=== PATIENT | male | born 1930 | race Caucasian/White ===

== ENCOUNTER 2016-11-10 19:38 | Emergency (ER) | payer MEDICARE, OTHER ==
[2016-11-10] MEDS ORDERED: SODIUM CHLORIDE 0.9% 1,000 ML IV STA ×2 (19:47→20:46)
[2016-11-10 19:49] LABS: Glucose,Whole Blood 89 mg/dL (75-99)
[2016-11-10 19:50] VITALS: RESP 18; TEMP 97.8
--- NOTE | 2016-11-10 19:50 | ED ---
General Adult HPI - General Stated complaint: Altered Mental Time Seen by Provider: 11/10/16 19:42 Source: patient, family, EMS, RN notes reviewed, old records reviewed Mode of arrival: ambulatory Limitations: altered mental status - History of Present Illness Initial comments: This is an 86-year-old male here for evaluation of altered mental status. Patient presents today presents today with altered mental status patient himself does not appear to be profoundly altered at this time. Patient and does admit the patient drinking today, has not been home for 2 days is reasonable to the hospital, patient's been at home taking care of himself. No known trauma no fevers, no new medications or know stopping of old medications. - Related Data Home Medications Medication Instructions Recorded Confirmed Memantine [Namenda] 5 mg PO BID 11/10/16 11/10/16 Allergies Allergy/AdvReac Type Severity Reaction Status Date / Time No Known Allergies Allergy Verified 11/10/16 20:03 Review of Systems ROS Statement: Those systems with pertinent positive or pertinent negative responses have been documented in the HPI. ROS Other: All systems not noted in ROS Statement are negative. Past Medical History Past Medical History: Dementia Additional Past Medical History / Comment(s): Prostate and skin CA History of Any Multi-Drug Resistant Organisms: None Reported Additional Past Surgical History / Comment(s): Colectomy Past Psychological History: No Psychological Hx Reported Smoking Status: Never smoker Past Alcohol Use History: Heavy Past Drug Use History: None Reported General Exam Limitations: no limitations General appearance: alert, in no apparent distress, appears intoxicated Head exam: Present: atraumatic, normocephalic, normal inspection Eye exam: Present: normal appearance, PERRL, EOMI. Absent: scleral icterus, conjunctival injection, periorbital swelling ENT exam: Present: normal exam, mucous membranes moist Neck exam: Present: normal inspection. Absent: tenderness, meningismus, lymphadenopathy Respiratory exam: Present: normal lung sounds bilaterally. Absent: respiratory distress, wheezes, rales, rhonchi, stridor Cardiovascular Exam: Present: regular rate, normal rhythm, normal heart sounds. Absent: systolic murmur, diastolic murmur, rubs, gallop, clicks GI/Abdominal exam: Present: soft, normal bowel sounds. Absent: distended, tenderness, guarding, rebound, rigid Extremities exam: Present: normal inspection, full ROM, normal capillary refill. Absent: tenderness, pedal edema, joint swelling, calf tenderness Back exam: Present: normal inspection Neurological exam: Present: alert, oriented X3, CN II-XII intact Psychiatric exam: Present: normal affect, normal mood Skin exam: Present: warm, dry, intact, normal color. Absent: rash Course Vital Signs 11/10/16 11/10/16 19:45 20:32 Temperature 97.8 F Pulse Rate 70 70 Respiratory 18 18 Rate Blood Pressure 162/78 148/72 O2 Sat by Pulse 99 99 Oximetry - Reevaluation(s) Reevaluation #1: 11/10/16 21:07 In speaking with patient's regarding alcohol level, she was surprised, patient does appear to be able to answer questions without difficulty at this time EKG Findings - EKG Comments: EKG Findings:: EKG shows normal sinus rhythm rate of 68, IN 170, QRS 90, QTC 425 Medical Decision Making - Medical Decision Making 80 formality ER for evaluation of altered mental status, patient's states patient is not acting properly not seeing or responding to appropriate, calling her R name not noticing who she is. No-cost of infection found, CT brain is negative for acute disease, patient be admitted for neurological evaluation, patient does drink the alcohol level is negative - Lab Data Result diagrams: 11/10/16 19:45 11/10/16 19:45 Lab Results 11/10/16 11/10/16 11/10/16 Range/Units 19:45 19:45 19:45 WBC 6.9 (3.8-10.6) k/uL RBC 3.75 L (4.30-5.90) m/uL Hgb 12.8 L (13.0-17.5) gm/dL Hct 36.9 L (39.0-53.0) % MCV 98.3 (80.0-100.0) fL MCH 34.2 (25.0-35.0) pg MCHC 34.8 (31.0-37.0) g/dL RDW 13.0 (11.5-15.5) % Plt Count 166 (150-450) k/uL Neutrophils % 59 % Lymphocytes % 33 % Monocytes % 5 % Eosinophils % 1 % Basophils % 1 % Neutrophils # 4.0 (1.3-7.7) k/uL Lymphocytes # 2.2 (1.0-4.8) k/uL Monocytes # 0.4 (0-1.0) k/uL Eosinophils # 0.1 (0-0.7) k/uL Basophils # 0.0 (0-0.2) k/uL PT (9.0-12.0) sec INR (<1.1) APTT (22.0-30.0) sec Sodium (137-145) mmol/L Potassium (3.5-5.1) mmol/L Chloride (98-107) mmol/L Carbon Dioxide (22-30) mmol/L Anion Gap mmol/L BUN (9-20) mg/dL Creatinine (0.66-1.25) mg/dL Est GFR (MDRD) Af Amer (>60 ml/min/1.73 sqM) Est GFR (MDRD) Non-Af (>60 ml/min/1.73 sqM) Glucose (74-99) mg/dL POC Glucose (mg/dL) (75-99) mg/dL POC Glu Ssrs Report Developer ID Calcium (8.4-10.2) mg/dL Phosphorus (2.5-4.5) mg/dL Magnesium (1.6-2.3) mg/dL Total Bilirubin (0.2-1.3) mg/dL AST (17-59) U/L ALT (21-72) U/L Alkaline Phosphatase (38-126) U/L Ammonia <9 (<30) umol/L Total Creatine Kinase 101 (55-170) U/L CK-MB (CK-2) 1.1 (0.0-2.4) ng/mL CK-MB (CK-2) Rel Index 1.1 Troponin I <0.012 (0.000-0.034) ng/mL Total Protein (6.3-8.2) g/dL Albumin (3.5-5.0) g/dL Urine Color Urine Appearance (Clear) Urine pH (5.0-8.0) Ur Specific Anderson (1.001-1.035) Urine Protein (Negative) Urine Glucose (UA) (Negative) Urine Ketones (Negative) Urine Blood (Negative) Urine Nitrite (Negative) Urine Bilirubin (Negative) Urine Urobilinogen (<2.0) mg/dL Ur Leukocyte Esterase (Negative) Urine RBC (0-5) /hpf Ur Squamous Epith Cells (0-4) /hpf Urine Bacteria (None) /hpf Hyaline Casts (0-2) /lpf Urine Mucus (None) /hpf Salicylates mg/dL Acetaminophen ug/mL Serum Alcohol mg/dL 11/10/16 11/10/16 11/10/16 Range/Units 19:45 19:45 19:48 WBC (3.8-10.6) k/uL RBC (4.30-5.90) m/uL Hgb (13.0-17.5) gm/dL Hct (39.0-53.0) % MCV (80.0-100.0) fL MCH (25.0-35.0) pg MCHC (31.0-37.0) g/dL RDW (11.5-15.5) % Plt Count (150-450) k/uL Neutrophils % % Lymphocytes % % Monocytes % % Eosinophils % % Basophils % % Neutrophils # (1.3-7.7) k/uL Lymphocytes # (1.0-4.8) k/uL Monocytes # (0-1.0) k/uL Eosinophils # (0-0.7) k/uL Basophils # (0-0.2) k/uL PT 10.5 (9.0-12.0) sec INR 1.0 (<1.1) APTT 22.2 (22.0-30.0) sec Sodium 141 (137-145) mmol/L Potassium 4.0 (3.5-5.1) mmol/L Chloride 105 (98-107) mmol/L Carbon Dioxide 24 (22-30) mmol/L Anion Gap 12 mmol/L BUN 26 H (9-20) mg/dL Creatinine 1.52 H (0.66-1.25) mg/dL Est GFR (MDRD) Af Amer 53 (>60 ml/min/1.73 sqM) Est GFR (MDRD) Non-Af 44 (>60 ml/min/1.73 sqM) Glucose 95 (74-99) mg/dL POC Glucose (mg/dL) 89 (75-99) mg/dL POC Glu Ssrs Report Developer ID [email or web address] Calcium 9.1 (8.4-10.2) mg/dL Phosphorus 3.3 (2.5-4.5) mg/dL Magnesium 2.1 (1.6-2.3) mg/dL Total Bilirubin 0.7 (0.2-1.3) mg/dL AST 19 (17-59) U/L ALT 22 (21-72) U/L Alkaline Phosphatase 60 (38-126) U/L Ammonia (<30) umol/L Total Creatine Kinase (55-170) U/L CK-MB (CK-2) (0.0-2.4) ng/mL CK-MB (CK-2) Rel Index Troponin I (0.000-0.034) ng/mL Total Protein 7.0 (6.3-8.2) g/dL Albumin 4.0 (3.5-5.0) g/dL Urine Color Urine Appearance (Clear) Urine pH (5.0-8.0) Ur Specific Anderson (1.001-1.035) Urine Protein (Negative) Urine Glucose (UA) (Negative) Urine Ketones (Negative) Urine Blood (Negative) Urine Nitrite (Negative) Urine Bilirubin (Negative) Urine Urobilinogen (<2.0) mg/dL Ur Leukocyte Esterase (Negative) Urine RBC (0-5) /hpf Ur Squamous Epith Cells (0-4) /hpf Urine Bacteria (None) /hpf Hyaline Casts (0-2) /lpf Urine Mucus (None) /hpf Salicylates <1.0 mg/dL Acetaminophen <10.0 ug/mL Serum Alcohol <10 mg/dL 11/10/16 Range/Units 20:00 WBC (3.8-10.6) k/uL RBC (4.30-5.90) m/uL Hgb (13.0-17.5) gm/dL Hct (39.0-53.0) % MCV (80.0-100.0) fL MCH (25.0-35.0) pg MCHC (31.0-37.0) g/dL RDW (11.5-15.5) % Plt Count (150-450) k/uL Neutrophils % % Lymphocytes % % Monocytes % % Eosinophils % % Basophils % % Neutrophils # (1.3-7.7) k/uL Lymphocytes # (1.0-4.8) k/uL Monocytes # (0-1.0) k/uL Eosinophils # (0-0.7) k/uL Basophils # (0-0.2) k/uL PT (9.0-12.0) sec INR (<1.1) APTT (22.0-30.0) sec Sodium (137-145) mmol/L Potassium (3.5-5.1) mmol/L Chloride (98-107) mmol/L Carbon Dioxide (22-30) mmol/L Anion Gap mmol/L BUN (9-20) mg/dL Creatinine (0.66-1.25) mg/dL Est GFR (MDRD) Af Amer (>60 ml/min/1.73 sqM) Est GFR (MDRD) Non-Af (>60 ml/min/1.73 sqM) Glucose (74-99) mg/dL POC Glucose (mg/dL) (75-99) mg/dL POC Glu Ssrs Report Developer ID Calcium (8.4-10.2) mg/dL Phosphorus (2.5-4.5) mg/dL Magnesium (1.6-2.3) mg/dL Total Bilirubin (0.2-1.3) mg/dL AST (17-59) U/L ALT (21-72) U/L Alkaline Phosphatase (38-126) U/L Ammonia (<30) umol/L Total Creatine Kinase (55-170) U/L CK-MB (CK-2) (0.0-2.4) ng/mL CK-MB (CK-2) Rel Index Troponin I (0.000-0.034) ng/mL Total Protein (6.3-8.2) g/dL Albumin (3.5-5.0) g/dL Urine Color Yellow Urine Appearance Clear (Clear) Urine pH 5.5 (5.0-8.0) Ur Specific Anderson 1.019 (1.001-1.035) Urine Protein 1+ H (Negative) Urine Glucose (UA) Negative (Negative) Urine Ketones Negative (Negative) Urine Blood Trace H (Negative) Urine Nitrite Negative (Negative) Urine Bilirubin Negative (Negative) Urine Urobilinogen <2.0 (<2.0) mg/dL Ur Leukocyte Esterase Negative (Negative) Urine RBC 1 (0-5) /hpf Ur Squamous Epith Cells 1 (0-4) /hpf Urine Bacteria Rare H (None) /hpf Hyaline Casts 3 H (0-2) /lpf Urine Mucus Rare H (None) /hpf Salicylates mg/dL Acetaminophen ug/mL Serum Alcohol mg/dL - Radiology Data Radiology results: report reviewed (CT brain negative for acute disease), image reviewed Disposition Clinical Impression: Altered mental status Disposition: ADMITTED IP TO THIS HOSP Condition: Fair Instructions: Altered Mental Status (ED) Referrals: None,Stated [Primary Care Provider] - 1-2 days
[2016-11-10 19:58] LABS: Basophils % (A) 1 %; CH 34.9; CHCM 35.7; Eosinophils # (A) 0.1 k/uL (0-0.7); Eosinophils % (A) 1 %; HCT 36.9 % (39.0-53.0); HDW 2.81; HGB 12.8 gm/dL (13.0-17.5); Luc # (Auto) 0.11; Luc % (Auto) 2; Lymphocytes # (A) 2.2 k/uL (1.0-4.8); Lymphocytes % (A) 33 %; MCH 34.2 pg (25.0-35.0); MCHC 34.8 g/dL (31.0-37.0); MCV 98.3 fL (80.0-100.0); Mean Platelet Volume 7.1; Monocytes # (A) 0.4 k/uL (0-1.0); Monocytes % (A) 5 %; Neutrophils % (A) 59 %; RBC 3.75 m/uL (4.30-5.90); WBC 6.9 k/uL (3.8-10.6); WBC (Perox) 6.91
[2016-11-10 20:06] LABS: Partial Thromboplastin Time 22.2 sec (22.0-30.0); Prothrombin Time 10.5 sec (9.0-12.0)
[2016-11-10 20:10] LABS: Appearance,Urine Clear (Clear); Bacteria,Urine Rare /hpf; Bilirubin,Urine Negative (Negative); Glucose,Urine (UA) Negative (Negative); Ketones,Urine Negative (Negative); Leukocyte Esterase,Urine Negative (Negative); Mucus,Urine Rare /hpf; Nitrite,Urine Negative (Negative); PH, Urine 5.5 (5.0-8.0); Particle Count 4902; Protein,Urine 1+ (Negative); RBC,Urine 1 /hpf (0-5); Specific Gravity,Urine 1.019 (1.001-1.035); Squamous Epithelial Cell,Urine 1 /hpf (0-4); UA Billing (MACRO vs. MICRO) MICRO; Urobilinogen,Urine <2.0 mg/dL (<2.0)
[2016-11-10 20:13] LABS: ALT 22 U/L (21-72); AST 19 U/L (17-59); Acetaminophen <10.0 ug/mL; Alcohol <10 mg/dL; Alkaline Phosphatase 60 U/L (38-126); Anion Gap 12 mmol/L; Blood Urea Nitrogen 26 mg/dL (9-20); Calcium 9.1 mg/dL (8.4-10.2); Carbon Dioxide 24 mmol/L (22-30); Chloride 105 mmol/L (98-107); Glucose 95 mg/dL (74-99); Magnesium 2.1 mg/dL (1.6-2.3); Non-African American GFR(MDRD) 44 (>60 ml/min/1.73 sqM); Phosphorous 3.3 mg/dL (2.5-4.5); Salicylate <1.0 mg/dL; Sodium 141 mmol/L (137-145); Total Bilirubin 0.7 mg/dL (0.2-1.3)
[2016-11-10 20:43] LABS: Creatine Kinase 101 U/L (55-170)
[2016-11-10 20:56] LABS: Creatine Kinase MB 1.1 ng/mL (0.0-2.4); Troponin I <0.012 ng/mL (0.000-0.034)
[2016-11-10] MEDS ORDERED: ASPIRIN 325 MG TAB PO STA (21:06)
--- NOTE | 2016-11-10 21:11 | CT ---
EXAMINATION TYPE: CT brain wo con DATE OF EXAM: 11/10/2016 8:56 PM COMPARISON: NONE HISTORY: History of dementia. increased confusion today CT DLP: 995.5 mGycm Automated exposure control for dose reduction was used. FINDINGS: There is diffuse cerebral cortical atrophy. There is no mass effect nor midline shift. There is no si gn of intracranial hemorrhage. The calvarium is intact. IMPRESSION: Cerebral atrophy with progression compared to old MR scan of 08/05/2005. No acute abnormality.
[2016-11-10] MEDS ORDERED: SODIUM CHLORIDE 0.9% 1,000 ML IV SCH (21:15)
[2016-11-10 21:34] VITALS: BP 158/78; PULSE 60
[2016-11-11] MEDS ORDERED: ASPIRIN 325 MG TAB PO SCH (21:07)
== END 2016-11-10 21:38 | disposition other institution (70) ==
LOC: EC 19:38 → UNDOADMIN 21:06 → 6SEL 21:06
DX: R41.82 Altered mental status, unspecified (principal); F03.90 Unspecified dementia, unspecified severity, without behavioral disturbance, psychotic disturbance, mood disturbance, and anxiety; Z85.46 Personal history of malignant neoplasm of prostate; Z85.828 Personal history of other malignant neoplasm of skin; Z79.899 Other long term (current) drug therapy
CPT/HCPCS: 36415; 70450; 80053; 80320; 81001; 82140; 82550; 82553; 83520; 83735; 84100; 84484; 85025; 85610; 85730; 87086; 93005; 96360; 99285

== ENCOUNTER 2017-08-12 19:53 | Emergency (ER) | payer MEDICARE, OTHER ==
[2017-08-12 20:34] LABS: Glucose,Whole Blood 97 mg/dL (75-99)
[2017-08-12 20:40] LABS: Basophils # (A) 0.1 k/uL (0-0.2); Basophils % (A) 1 %; Eosinophils # (A) 0.1 k/uL (0-0.7); Eosinophils % (A) 2 %; HCT 36.1 % (39.0-53.0); HGB 12.1 gm/dL (13.0-17.5); Lymphocytes # (A) 2.4 k/uL (1.0-4.8); Lymphocytes % (A) 34 %; MCHC 33.5 g/dL (31.0-37.0); MCV 101.5 fL (80.0-100.0); Macrocytosis Slight; Mean Platelet Volume 7.3; Monocytes # (A) 0.3 k/uL (0-1.0); Monocytes % (A) 5 %; Neutrophils # (A) 3.9 k/uL (1.3-7.7); Neutrophils % (A) 57 %; Platelet Count 251 k/uL (150-450); RBC 3.56 m/uL (4.30-5.90); RDW 12.9 % (11.5-15.5); WBC 6.9 k/uL (3.8-10.6)
[2017-08-12 20:49] LABS: Albumin 3.7 g/dL (3.5-5.0); Calcium 9.2 mg/dL (8.4-10.2); Potassium 4.6 mmol/L (3.5-5.1); Total Bilirubin 0.4 mg/dL (0.2-1.3); Total Protein 6.5 g/dL (6.3-8.2)
[2017-08-12 20:51] LABS: Partial Thromboplastin Time 22.3 sec (22.0-30.0)
[2017-08-12 20:58] LABS: Creatine Kinase 100 U/L (55-170)
--- NOTE | 2017-08-12 21:05 | XR ---
EXAMINATION TYPE: XR chest 2V DATE OF EXAM: 08/12/2017 COMPARISON: NONE HISTORY: Dementia. Confusion. TECHNIQUE: Frontal and lateral views of the chest are obtained. FINDINGS: There is no heart failure nor confluent pneumonic infiltrate. Thoracic aorta is atheromato us. Heart size is normal. There is no pleural effusion. Bony thorax is intact. IMPRESSION: No active cardiopulmonary disease. Normal heart.
--- NOTE | 2017-08-12 21:09 | CT ---
EXAMINATION TYPE: CT brain wo con DATE OF EXAM: 08/12/2017 COMPARISON: NONE HISTORY: Altered mental status, history of dementia. CT DLP: 1262.00 mGycm Automated exposure control for dose reduction was used. FINDINGS: There is cerebral cortical atrophy. There is no mass effect nor midline shift. There is no sign of in tracranial hemorrhage. The calvarium is intact. IMPRESSION: NEGATIVE CT SCAN OF THE BRAIN. ATROPHY APPROPRIATE FOR AGE.
[2017-08-12 21:11] LABS: Creatine Kinase MB 1.2 ng/mL (0.0-2.4); Troponin I <0.012 ng/mL (0.000-0.034)
[2017-08-12] MEDS ORDERED: SODIUM CHLORIDE 0.9% 1,000 ML IV ONE (21:12)
--- NOTE | 2017-08-12 21:37 | ED ---
Altered Mental Status HPI - General Chief Complaint: Altered Mental Status Stated Complaint: Dimentia Time Seen by Provider: 08/12/17 20:16 Source: patient, family, EMS, RN notes reviewed Mode of arrival: EMS Limitations: altered mental status (dementia) - History of Present Illness Initial Comments: 87-year-old male presents emergency department via EMS with for confusion, combative numbness. Patient has a history of dementia and is normally combative at times though easily redirected. White states that she could not calm down this evening and so called EMS. She states that he most likely just drank too much alcohol. She states that he is at his normal baseline now that he is home. Patient himself has no complaints denies chest pain, headache, dizziness, abdominal pain, nausea vomiting. States that he usually gets worse as the day goes on and towards nighttime and also states that he does not nap and afternoon symptoms worsen or she did state that he does not take a nap tonight. - Related Data Home Medications Medication Instructions Recorded Confirmed Memantine [Namenda] 10 mg PO DAILY 08/12/17 08/12/17 Allergies Allergy/AdvReac Type Severity Reaction Status Date / Time No Known Allergies Allergy Verified 08/12/17 20:19 Review of Systems ROS Statement: Those systems with pertinent positive or pertinent negative responses have been documented in the HPI. ROS Other: All systems not noted in ROS Statement are negative. Past Medical History Past Medical History: Dementia Additional Past Medical History / Comment(s): Prostate and skin CA History of Any Multi-Drug Resistant Organisms: None Reported Additional Past Surgical History / Comment(s): Colectomy Past Psychological History: No Psychological Hx Reported Smoking Status: Never smoker Past Alcohol Use History: Heavy Past Drug Use History: None Reported General Exam Limitations: altered mental status General appearance: alert, in no apparent distress Head exam: Present: atraumatic, normocephalic, normal inspection Eye exam: Present: normal appearance, PERRL, EOMI. Absent: scleral icterus, conjunctival injection, periorbital swelling ENT exam: Present: normal exam, normal oropharynx, mucous membranes moist, TM's normal bilaterally, normal external ear exam Neck exam: Present: normal inspection, full ROM. Absent: tenderness, meningismus, lymphadenopathy Respiratory exam: Present: normal lung sounds bilaterally. Absent: respiratory distress, wheezes, rales, rhonchi, stridor Cardiovascular Exam: Present: regular rate, normal rhythm, normal heart sounds. Absent: systolic murmur, diastolic murmur, rubs, gallop, clicks GI/Abdominal exam: Present: soft, normal bowel sounds. Absent: distended, tenderness, guarding, rebound, rigid Neurological exam: Present: alert, CN II-XII intact, reflexes normal. Absent: oriented X3, motor sensory deficit Skin exam: Present: warm, dry, intact, normal color. Absent: rash Course Vital Signs 08/12/17 08/12/17 20:10 21:42 Temperature 97.6 F Pulse Rate 66 65 Respiratory 18 18 Rate Blood Pressure 168/92 201/96 O2 Sat by Pulse 98 97 Oximetry Medical Decision Making - Medical Decision Making 87-year-old male present emergency department for confusion, dementia, and combative behavior. Patient has a history of dementia patient is as baseline per family at this time. Patient's laboratory shows mild elevation of his kidney function though he does have some chronic issues. Patient was hydrated patient is not combative has not had any episodes here. We did discuss that if family feels that he is still confused from his baseline or unable to be cared for at home he may be admitted family states that they do feel control taking him home at this time. - Lab Data Result diagrams: 08/12/17 20:27 08/12/17 20:27 Lab Results 08/12/17 08/12/17 08/12/17 Range/Units 20:27 20:27 20:27 WBC 6.9 (3.8-10.6) k/uL RBC 3.56 L (4.30-5.90) m/uL Hgb 12.1 L (13.0-17.5) gm/dL Hct 36.1 L (39.0-53.0) % MCV 101.5 H (80.0-100.0) fL MCH 34.0 (25.0-35.0) pg MCHC 33.5 (31.0-37.0) g/dL RDW 12.9 (11.5-15.5) % Plt Count 251 (150-450) k/uL Neutrophils % 57 % Lymphocytes % 34 % Monocytes % 5 % Eosinophils % 2 % Basophils % 1 % Neutrophils # 3.9 (1.3-7.7) k/uL Lymphocytes # 2.4 (1.0-4.8) k/uL Monocytes # 0.3 (0-1.0) k/uL Eosinophils # 0.1 (0-0.7) k/uL Basophils # 0.1 (0-0.2) k/uL Macrocytosis Slight PT (9.0-12.0) sec INR (<1.2) APTT (22.0-30.0) sec Sodium 140 (137-145) mmol/L Potassium 4.6 (3.5-5.1) mmol/L Chloride 106 (98-107) mmol/L Carbon Dioxide 25 (22-30) mmol/L Anion Gap 9 mmol/L BUN 30 H (9-20) mg/dL Creatinine 1.73 H (0.66-1.25) mg/dL Est GFR (MDRD) Af Amer 46 (>60 ml/min/1.73 sqM) Est GFR (MDRD) Non-Af 38 (>60 ml/min/1.73 sqM) Glucose 99 (74-99) mg/dL POC Glucose (mg/dL) (75-99) mg/dL POC Glu Manager Balance ID Calcium 9.2 (8.4-10.2) mg/dL Total Bilirubin 0.4 (0.2-1.3) mg/dL AST 23 (17-59) U/L ALT 36 (21-72) U/L Alkaline Phosphatase 70 (38-126) U/L Total Creatine Kinase 100 (55-170) U/L CK-MB (CK-2) 1.2 (0.0-2.4) ng/mL CK-MB (CK-2) Rel Index 1.2 Troponin I <0.012 (0.000-0.034) ng/mL Total Protein 6.5 (6.3-8.2) g/dL Albumin 3.7 (3.5-5.0) g/dL Urine Color Urine Appearance (Clear) Urine pH (5.0-8.0) Ur Specific [place] (1.001-1.035) Urine Protein (Negative) Urine Glucose (UA) (Negative) Urine Ketones (Negative) Urine Blood (Negative) Urine Nitrite (Negative) Urine Bilirubin (Negative) Urine Urobilinogen (<2.0) mg/dL Ur Leukocyte Esterase (Negative) Urine RBC (0-5) /hpf Urine WBC (0-5) /hpf Urine Mucus (None) /hpf Serum Alcohol mg/dL 08/12/17 08/12/17 08/12/17 Range/Units 20:27 20:32 21:10 WBC (3.8-10.6) k/uL RBC (4.30-5.90) m/uL Hgb (13.0-17.5) gm/dL Hct (39.0-53.0) % MCV (80.0-100.0) fL MCH (25.0-35.0) pg MCHC (31.0-37.0) g/dL RDW (11.5-15.5) % Plt Count (150-450) k/uL Neutrophils % % Lymphocytes % % Monocytes % % Eosinophils % % Basophils % % Neutrophils # (1.3-7.7) k/uL Lymphocytes # (1.0-4.8) k/uL Monocytes # (0-1.0) k/uL Eosinophils # (0-0.7) k/uL Basophils # (0-0.2) k/uL Macrocytosis PT 10.0 (9.0-12.0) sec INR 1.0 (<1.2) APTT 22.3 (22.0-30.0) sec Sodium (137-145) mmol/L Potassium (3.5-5.1) mmol/L Chloride (98-107) mmol/L Carbon Dioxide (22-30) mmol/L Anion Gap mmol/L BUN (9-20) mg/dL Creatinine (0.66-1.25) mg/dL Est GFR (MDRD) Af Amer (>60 ml/min/1.73 sqM) Est GFR (MDRD) Non-Af (>60 ml/min/1.73 sqM) Glucose (74-99) mg/dL POC Glucose (mg/dL) 97 (75-99) mg/dL POC Glu Manager Balance ID Gris Peck Calcium (8.4-10.2) mg/dL Total Bilirubin (0.2-1.3) mg/dL AST (17-59) U/L ALT (21-72) U/L Alkaline Phosphatase (38-126) U/L Total Creatine Kinase (55-170) U/L CK-MB (CK-2) (0.0-2.4) ng/mL CK-MB (CK-2) Rel Index Troponin I (0.000-0.034) ng/mL Total Protein (6.3-8.2) g/dL Albumin (3.5-5.0) g/dL Urine Color Urine Appearance (Clear) Urine pH (5.0-8.0) Ur Specific [place] (1.001-1.035) Urine Protein (Negative) Urine Glucose (UA) (Negative) Urine Ketones (Negative) Urine Blood (Negative) Urine Nitrite (Negative) Urine Bilirubin (Negative) Urine Urobilinogen (<2.0) mg/dL Ur Leukocyte Esterase (Negative) Urine RBC (0-5) /hpf Urine WBC (0-5) /hpf Urine Mucus (None) /hpf Serum Alcohol <10 mg/dL 08/12/17 Range/Units 22:12 WBC (3.8-10.6) k/uL RBC (4.30-5.90) m/uL Hgb (13.0-17.5) gm/dL Hct (39.0-53.0) % MCV (80.0-100.0) fL MCH (25.0-35.0) pg MCHC (31.0-37.0) g/dL RDW (11.5-15.5) % Plt Count (150-450) k/uL Neutrophils % % Lymphocytes % % Monocytes % % Eosinophils % % Basophils % % Neutrophils # (1.3-7.7) k/uL Lymphocytes # (1.0-4.8) k/uL Monocytes # (0-1.0) k/uL Eosinophils # (0-0.7) k/uL Basophils # (0-0.2) k/uL Macrocytosis PT (9.0-12.0) sec INR (<1.2) APTT (22.0-30.0) sec Sodium (137-145) mmol/L Potassium (3.5-5.1) mmol/L Chloride (98-107) mmol/L Carbon Dioxide (22-30) mmol/L Anion Gap mmol/L BUN (9-20) mg/dL Creatinine (0.66-1.25) mg/dL Est GFR (MDRD) Af Amer (>60 ml/min/1.73 sqM) Est GFR (MDRD) Non-Af (>60 ml/min/1.73 sqM) Glucose (74-99) mg/dL POC Glucose (mg/dL) (75-99) mg/dL POC Glu Manager Balance ID Calcium (8.4-10.2) mg/dL Total Bilirubin (0.2-1.3) mg/dL AST (17-59) U/L ALT (21-72) U/L Alkaline Phosphatase (38-126) U/L Total Creatine Kinase (55-170) U/L CK-MB (CK-2) (0.0-2.4) ng/mL CK-MB (CK-2) Rel Index Troponin I (0.000-0.034) ng/mL Total Protein (6.3-8.2) g/dL Albumin (3.5-5.0) g/dL Urine Color Yellow Urine Appearance Clear (Clear) Urine pH 6.0 (5.0-8.0) Ur Specific [place] 1.021 (1.001-1.035) Urine Protein 1+ H (Negative) Urine Glucose (UA) Negative (Negative) Urine Ketones Negative (Negative) Urine Blood Negative (Negative) Urine Nitrite Negative (Negative) Urine Bilirubin Negative (Negative) Urine Urobilinogen <2.0 (<2.0) mg/dL Ur Leukocyte Esterase Negative (Negative) Urine RBC 1 (0-5) /hpf Urine WBC 1 (0-5) /hpf Urine Mucus Rare H (None) /hpf Serum Alcohol mg/dL - EKG Data EKG Comments: EKG performed at 20:33 normal sinus rhythm with a rate of 60 CO 162 QRS 86 QT/ QTC 398/398 Disposition Clinical Impression: Dementia, Combative behavior Disposition: HOME SELF-CARE Condition: Stable Instructions: Dementia (ED) Additional Instructions: Please return to the Emergency Department if symptoms worsen or any other concerns. Referrals: None,Stated [Primary Care Provider] - 1-2 days Time of Disposition: 22:45
[2017-08-12 22:24] LABS: Appearance,Urine Clear (Clear); Bilirubin,Urine Negative (Negative); Blood,Urine Negative (Negative); Color,Urine Yellow; Glucose,Urine (UA) Negative (Negative); Ketones,Urine Negative (Negative); Leukocyte Esterase,Urine Negative (Negative); Mucus,Urine Rare /hpf; Nitrite,Urine Negative (Negative); Protein,Urine 1+ (Negative); RBC,Urine 1 /hpf (0-5); Specific Gravity,Urine 1.021 (1.001-1.035); Urobilinogen,Urine <2.0 mg/dL (<2.0); WBC,Urine 1 /hpf (0-5)
[2017-08-12 22:50] VITALS: BP 158/82; PULSE 57; RESP 16; TEMP 98.3
== END 2017-08-12 22:56 | disposition home or self-care (01) ==
LOC: EC 19:53
DX: F03.91 Unspecified dementia, unspecified severity, with behavioral disturbance (principal); Z85.46 Personal history of malignant neoplasm of prostate; Z85.828 Personal history of other malignant neoplasm of skin; Z79.899 Other long term (current) drug therapy
CPT/HCPCS: 36415; 70450; 71046; 80053; 80320; 81001; 82550; 82553; 84484; 85025; 85610; 85730; 93005; 96360; 99285

== ENCOUNTER 2017-08-16 20:31 | Inpatient (IN) | payer MEDICARE, OTHER ==
[2017-08-16 20:39] LABS: Glucose,Whole Blood 106 mg/dL (75-99)
--- NOTE | 2017-08-16 20:43 | ED ---
General Adult HPI - General Chief complaint: Altered Mental Status Stated complaint: Altered Mental Status Time Seen by Provider: 08/16/17 20:38 Source: EMS, RN notes reviewed, old records reviewed Mode of arrival: EMS Limitations: altered mental status - History of Present Illness Initial comments: This is an 87-year-old male the ER for evaluation. Patient's porphyrin significant clinical state. Patient's vital by sated increasing dementia, decreasing responsiveness, patient not responding, no longer is able to recognize patient's - Related Data Home Medications Medication Instructions Recorded Confirmed Memantine [Namenda] 10 mg PO DAILY 08/12/17 08/16/17 Allergies Allergy/AdvReac Type Severity Reaction Status Date / Time No Known Allergies Allergy Verified 08/16/17 20:53 Review of Systems ROS Statement: Those systems with pertinent positive or pertinent negative responses have been documented in the HPI. ROS Other: All systems not noted in ROS Statement are negative. Past Medical History Past Medical History: Dementia Additional Past Medical History / Comment(s): Prostate and skin CA History of Any Multi-Drug Resistant Organisms: None Reported Additional Past Surgical History / Comment(s): Colectomy Past Psychological History: No Psychological Hx Reported Smoking Status: Never smoker Past Alcohol Use History: Heavy Past Drug Use History: None Reported General Exam Limitations: altered mental status General appearance: alert, in no apparent distress Head exam: Present: atraumatic, normocephalic, normal inspection Eye exam: Present: normal appearance, PERRL, EOMI. Absent: scleral icterus, conjunctival injection, periorbital swelling ENT exam: Present: normal exam, mucous membranes moist Neck exam: Present: normal inspection. Absent: tenderness, meningismus, lymphadenopathy Respiratory exam: Present: normal lung sounds bilaterally. Absent: respiratory distress, wheezes, rales, rhonchi, stridor Cardiovascular Exam: Present: regular rate, normal rhythm, normal heart sounds. Absent: systolic murmur, diastolic murmur, rubs, gallop, clicks GI/Abdominal exam: Present: soft, normal bowel sounds. Absent: distended, tenderness, guarding, rebound, rigid Extremities exam: Present: normal inspection, full ROM, normal capillary refill. Absent: tenderness, pedal edema, joint swelling, calf tenderness Back exam: Present: normal inspection Neurological exam: Present: alert, oriented X3, CN II-XII intact Psychiatric exam: Present: normal affect, normal mood Skin exam: Present: warm, dry, intact, normal color. Absent: rash Course Vital Signs 08/16/17 08/16/17 20:34 23:27 Temperature 97.3 F L Pulse Rate 70 66 Respiratory 16 16 Rate Blood Pressure 157/75 176/88 EKG Findings - EKG Comments: EKG Findings:: EKG shows normal sinus rhythm respiratory, PA 160, QRS 90, QTc 429 Medical Decision Making - Medical Decision Making 87 male to ER with progressively dementia, unable to take care of patient home, patient's crying hysterical states the patient no longer recognizes her, patient will be admitted for neurological evaluation, likely placement - Lab Data Result diagrams: 08/16/17 21:00 08/16/17 21:00 Lab Results 08/16/17 08/16/17 08/16/17 Range/Units 19:13 20:37 21:00 WBC (3.8-10.6) k/uL RBC (4.30-5.90) m/uL Hgb (13.0-17.5) gm/dL Hct (39.0-53.0) % MCV (80.0-100.0) fL MCH (25.0-35.0) pg MCHC (31.0-37.0) g/dL RDW (11.5-15.5) % Plt Count (150-450) k/uL Neutrophils % % Lymphocytes % % Monocytes % % Eosinophils % % Basophils % % Neutrophils # (1.3-7.7) k/uL Lymphocytes # (1.0-4.8) k/uL Monocytes # (0-1.0) k/uL Eosinophils # (0-0.7) k/uL Basophils # (0-0.2) k/uL PT (9.0-12.0) sec INR (<1.2) APTT (22.0-30.0) sec Sodium (137-145) mmol/L Potassium (3.5-5.1) mmol/L Chloride (98-107) mmol/L Carbon Dioxide (22-30) mmol/L Anion Gap mmol/L BUN (9-20) mg/dL Creatinine (0.66-1.25) mg/dL Est GFR (MDRD) Af Amer (>60 ml/min/1.73 sqM) Est GFR (MDRD) Non-Af (>60 ml/min/1.73 sqM) Glucose (74-99) mg/dL POC Glucose (mg/dL) 106 H (75-99) mg/dL POC Glu Medical Coding Auditor Tabitha May Plasma Lactic Acid Sherwin (0.7-2.0) mmol/L Calcium (8.4-10.2) mg/dL Phosphorus (2.5-4.5) mg/dL Magnesium (1.6-2.3) mg/dL Total Bilirubin (0.2-1.3) mg/dL AST (17-59) U/L ALT (21-72) U/L Alkaline Phosphatase (38-126) U/L Total Creatine Kinase 83 (55-170) U/L CK-MB (CK-2) 1.5 (0.0-2.4) ng/mL CK-MB (CK-2) Rel Index 1.8 Troponin I <0.012 (0.000-0.034) ng/mL Total Protein (6.3-8.2) g/dL Albumin (3.5-5.0) g/dL Urine Color Yellow Urine Appearance Clear (Clear) Urine pH 5.5 (5.0-8.0) Ur Specific Stacy 1.017 (1.001-1.035) Urine Protein Trace H (Negative) Urine Glucose (UA) Negative (Negative) Urine Ketones Negative (Negative) Urine Blood Negative (Negative) Urine Nitrite Negative (Negative) Urine Bilirubin Negative (Negative) Urine Urobilinogen <2.0 (<2.0) mg/dL Ur Leukocyte Esterase Negative (Negative) 08/16/17 08/16/17 08/16/17 Range/Units 21:00 21:00 21:00 WBC 5.9 (3.8-10.6) k/uL RBC 3.54 L (4.30-5.90) m/uL Hgb 11.7 L (13.0-17.5) gm/dL Hct 35.4 L (39.0-53.0) % MCV 100.1 H (80.0-100.0) fL MCH 33.2 (25.0-35.0) pg MCHC 33.1 (31.0-37.0) g/dL RDW 13.7 (11.5-15.5) % Plt Count 225 (150-450) k/uL Neutrophils % 57 % Lymphocytes % 34 % Monocytes % 6 % Eosinophils % 1 % Basophils % 1 % Neutrophils # 3.4 (1.3-7.7) k/uL Lymphocytes # 2.0 (1.0-4.8) k/uL Monocytes # 0.4 (0-1.0) k/uL Eosinophils # 0.1 (0-0.7) k/uL Basophils # 0.1 (0-0.2) k/uL PT (9.0-12.0) sec INR (<1.2) APTT (22.0-30.0) sec Sodium 141 (137-145) mmol/L Potassium 4.7 (3.5-5.1) mmol/L Chloride 109 H (98-107) mmol/L Carbon Dioxide 25 (22-30) mmol/L Anion Gap 7 mmol/L BUN 29 H (9-20) mg/dL Creatinine 1.50 H (0.66-1.25) mg/dL Est GFR (MDRD) Af Amer 54 (>60 ml/min/1.73 sqM) Est GFR (MDRD) Non-Af 44 (>60 ml/min/1.73 sqM) Glucose 106 H (74-99) mg/dL POC Glucose (mg/dL) (75-99) mg/dL POC Glu Medical Coding Auditor ID Plasma Lactic Acid Sherwin 0.9 (0.7-2.0) mmol/L Calcium 9.1 (8.4-10.2) mg/dL Phosphorus 3.5 (2.5-4.5) mg/dL Magnesium 2.1 (1.6-2.3) mg/dL Total Bilirubin 0.4 (0.2-1.3) mg/dL AST 19 (17-59) U/L ALT 35 (21-72) U/L Alkaline Phosphatase 61 (38-126) U/L Total Creatine Kinase (55-170) U/L CK-MB (CK-2) (0.0-2.4) ng/mL CK-MB (CK-2) Rel Index Troponin I (0.000-0.034) ng/mL Total Protein 6.6 (6.3-8.2) g/dL Albumin 3.7 (3.5-5.0) g/dL Urine Color Urine Appearance (Clear) Urine pH (5.0-8.0) Ur Specific Stacy (1.001-1.035) Urine Protein (Negative) Urine Glucose (UA) (Negative) Urine Ketones (Negative) Urine Blood (Negative) Urine Nitrite (Negative) Urine Bilirubin (Negative) Urine Urobilinogen (<2.0) mg/dL Ur Leukocyte Esterase (Negative) 08/16/17 Range/Units 21:00 WBC (3.8-10.6) k/uL RBC (4.30-5.90) m/uL Hgb (13.0-17.5) gm/dL Hct (39.0-53.0) % MCV (80.0-100.0) fL MCH (25.0-35.0) pg MCHC (31.0-37.0) g/dL RDW (11.5-15.5) % Plt Count (150-450) k/uL Neutrophils % % Lymphocytes % % Monocytes % % Eosinophils % % Basophils % % Neutrophils # (1.3-7.7) k/uL Lymphocytes # (1.0-4.8) k/uL Monocytes # (0-1.0) k/uL Eosinophils # (0-0.7) k/uL Basophils # (0-0.2) k/uL PT 10.0 (9.0-12.0) sec INR 1.0 (<1.2) APTT 22.2 (22.0-30.0) sec Sodium (137-145) mmol/L Potassium (3.5-5.1) mmol/L Chloride (98-107) mmol/L Carbon Dioxide (22-30) mmol/L Anion Gap mmol/L BUN (9-20) mg/dL Creatinine (0.66-1.25) mg/dL Est GFR (MDRD) Af Amer (>60 ml/min/1.73 sqM) Est GFR (MDRD) Non-Af (>60 ml/min/1.73 sqM) Glucose (74-99) mg/dL POC Glucose (mg/dL) (75-99) mg/dL POC Glu Medical Coding Auditor ID Plasma Lactic Acid Sherwin (0.7-2.0) mmol/L Calcium (8.4-10.2) mg/dL Phosphorus (2.5-4.5) mg/dL Magnesium (1.6-2.3) mg/dL Total Bilirubin (0.2-1.3) mg/dL AST (17-59) U/L ALT (21-72) U/L Alkaline Phosphatase (38-126) U/L Total Creatine Kinase (55-170) U/L CK-MB (CK-2) (0.0-2.4) ng/mL CK-MB (CK-2) Rel Index Troponin I (0.000-0.034) ng/mL Total Protein (6.3-8.2) g/dL Albumin (3.5-5.0) g/dL Urine Color Urine Appearance (Clear) Urine pH (5.0-8.0) Ur Specific Stacy (1.001-1.035) Urine Protein (Negative) Urine Glucose (UA) (Negative) Urine Ketones (Negative) Urine Blood (Negative) Urine Nitrite (Negative) Urine Bilirubin (Negative) Urine Urobilinogen (<2.0) mg/dL Ur Leukocyte Esterase (Negative) - Radiology Data Radiology results: report reviewed (CT brain is negative), image reviewed Disposition Clinical Impression: Dementia, Combative behavior, Altered mental status Disposition: ADMITTED IP TO THIS [facility] Condition: Fair Referrals: None,Stated [Primary Care Provider] - 1-2 days
[2017-08-16] MEDS ORDERED: SODIUM CHLORIDE 0.9% 1,000 ML IV STA (20:44)
[2017-08-16 21:11] LABS: Basophils # (A) 0.1 k/uL (0-0.2); Basophils % (A) 1 %; Eosinophils # (A) 0.1 k/uL (0-0.7); Eosinophils % (A) 1 %; HCT 35.4 % (39.0-53.0); HGB 11.7 gm/dL (13.0-17.5); Lymphocytes % (A) 34 %; MCH 33.2 pg (25.0-35.0); MCHC 33.1 g/dL (31.0-37.0); MCV 100.1 fL (80.0-100.0); Mean Platelet Volume 8.1; Monocytes # (A) 0.4 k/uL (0-1.0); Monocytes % (A) 6 %; Neutrophils # (A) 3.4 k/uL (1.3-7.7); Neutrophils % (A) 57 %; Platelet Count 225 k/uL (150-450); RBC 3.54 m/uL (4.30-5.90); RDW 13.7 % (11.5-15.5); WBC 5.9 k/uL (3.8-10.6)
[2017-08-16 21:21] LABS: Albumin 3.7 g/dL (3.5-5.0); Calcium 9.1 mg/dL (8.4-10.2); Magnesium 2.1 mg/dL (1.6-2.3); Partial Thromboplastin Time 22.2 sec (22.0-30.0); Phosphorus 3.5 mg/dL (2.5-4.5); Potassium 4.7 mmol/L (3.5-5.1); Total Bilirubin 0.4 mg/dL (0.2-1.3); Total Protein 6.6 g/dL (6.3-8.2)
[2017-08-16 21:23] LABS: Creatine Kinase 83 U/L (55-170)
[2017-08-16 21:36] LABS: Creatine Kinase MB 1.5 ng/mL (0.0-2.4); Troponin I <0.012 ng/mL (0.000-0.034)
--- NOTE | 2017-08-16 21:42 | CT ---
EXAMINATION: CT brain wo con DATE AND TIME: 08/16/2017 9:15 PM ORDERING PROVIDER: Reggie Overton DO CLINICAL INDICATION: weakness TECHNIQUE: Standard departmental protocol. COMPARISON: 08/12/2017 DESCRIPTION: The calvarium is intact. There is no intracranial hemorrhage. There is no mass or mass e ffect. There is no definite new attenuation defect. Remainder of the intra-axial and extra-axial comp artment examination is unremarkable. The paranasal sinuses, middle ear cavities, and mastoid sinus ai r cells are clear. The orbits are intact. IMPRESSION: NO ACUTE PROCESS.
[2017-08-16 23:21] LABS: Appearance,Urine Clear (Clear); Bilirubin,Urine Negative (Negative); Blood,Urine Negative (Negative); Color,Urine Yellow; Glucose,Urine (UA) Negative (Negative); Ketones,Urine Negative (Negative); Leukocyte Esterase,Urine Negative (Negative); Nitrite,Urine Negative (Negative); PH, Urine 5.5 (5.0-8.0); Protein,Urine Trace (Negative); Specific Gravity,Urine 1.017 (1.001-1.035); Urobilinogen,Urine <2.0 mg/dL (<2.0)
[2017-08-17] MEDS: SODIUM CHLORIDE 0.9% 1,000 ML IV ONE ×2 (00:30→09:21)
[2017-08-17] MEDS: MEMANTINE 10 MG TAB PO SCH (09:19)
--- NOTE | 2017-08-17 10:12 | HP ---
HISTORY AND PHYSICAL CHIEF COMPLAINT: An 87-year-old white male who came to the emergency room with decreased responsiveness, increasing dementia, not responding, unable to take care of himself . HOME MEDICATIONS: Namenda 10 mg daily. ALLERGIES: No known drug allergies. REVIEW OF SYSTEMS: Fourteen-point review of systems negative except for as mentioned in HPI. PAST MEDICAL HISTORY: Dementia, prostate and skin cancer, colectomy, heavy smoker, heavy alcohol, no illicit drugs. PHYSICAL EXAM: Temp 97.3, pulse 70, respirations to 16 to 18. PSYCH: Fair mood and affect. Alert and oriented x2. Cranial nerves are intact. Pupils equal, round, reactive to light and accommodation on ENT exam. LUNGS: Show normal lung sounds. CARDIOVASCULAR: Regular rate and rhythm. GI: Soft, nontender. HEMATOLOGIC: Negative Homans. BACK: Normal inspection. Has altered mental status. EKG sinus rhythm. ASSESSMENT: 1. Dementia. 2. Acute progressing dementia, unable to take care of himself at home. 3. Acute neurologic event, possibly a worsening of a stroke. 4. Acute on chronic anemia. 5. Prerenal renal insufficiency. 6. Chronic renal disease stage III. Neurologic recommendations are pending. Please see further orders in the chart. Possible ECF placement will be needed of this patient as cannot take care of him at this point. MMODL / IJN: [id number] /
--- NOTE | 2017-08-17 15:20 | P.CNNES ---
History of Present Illness Consult date: 08/17/17 Reason for Consult: Patient being evaluated for worsening dementia and possible placement. History of Present Illness: This patient is a 87-year-old right-handed white male who has been followed in the outpatient neurology clinic for mild dementia. Patient has not been seen in the clinic since November of last year. Apparently he was brought into the emergency room with his stating that he showed increase agitation and worsening dementia symptoms. He was also noted to have decreased responsiveness to her at home. She feels very frustrated as it is very hard for her to continue to provide care for him as he is very demanding. He is also shown episodes of agitation as well. He has been treated for his dementia and is currently taking Namenda 10 mg daily. Continues to take this medication since evaluation last year. Patient was seen in the emergency room by Dr. Overton. He underwent a computed tomography scan of the brain which revealed no acute intracranial abnormalities. He was admitted to hospital for further evaluation. Patient is examined today in his room. He is resting comfortably. He appears to be near baseline level of function as he was seen last year. He does not appear to be agitated or combative at this time. Patient may benefit from ongoing outpatient therapy and home health care or possible ECF placement depending on his response and how his feels she can handle him at home. He does not appear agitated or combative at this time. His has noted increasing difficulty in caring for him at home and for this reason may require ECF placement. He seems to be otherwise doing well with no other complaints. We will obtain routine EEG for further evaluation. Would rule out any intercurrent sepsis for this patient as well. Neurology is now been consulted for further evaluation and recommendations. Review of Systems Constitutional: Denies chills, Denies fever Eyes: denies blurred vision, denies pain Ears, nose, mouth and throat: Denies headache, Denies sore throat Cardiovascular: Denies chest pain, Denies shortness of breath Respiratory: Denies cough Gastrointestinal: Denies abdominal pain, Denies diarrhea, Denies nausea, Denies vomiting Musculoskeletal: Denies myalgias Integumentary: Denies pruritus, Denies rash Neurological: Reports change in mentation, Reports confusion, Reports memory loss, Denies numbness, Denies weakness Psychiatric: Reports difficulty concentrating, Reports irritability, Denies anxiety, Denies depression Endocrine: Denies fatigue, Denies weight change Past Medical History Past Medical History: Cancer, Dementia Additional Past Medical History / Comment(s): Dementia getting progressively worse, colon cancer with surgery, prostrate cancer with surgery, basal cell skin cancer with surgery, incontnence of urine and stool at times, ETOH abuse per spouse. History of Any Multi-Drug Resistant Organisms: None Reported Additional Past Surgical History / Comment(s): Colectomy, prostratectomy, skin cancer removals, laser eye surgery bilaterally for vision. Past Anesthesia/Blood Transfusion Reactions: No Reported Reaction Smoking Status: Never smoker - Past Family History Father Family Medical History: Cancer Additional Family Medical History / Comment(s): Father of lung cancer at the age of 60 yrs. He was a smoker. Mother Family Medical History: Myocardial Infarction (DE) Additional Family Medical History / Comment(s): Mother of a DE in her 60s. Brother(s) Family Medical History: Dementia Sister(s) Family Medical History: Dementia Medications and Allergies Home Medications Medication Instructions Recorded Confirmed Type Memantine [Namenda] 10 mg PO DAILY 08/12/17 08/16/17 History Allergies Allergy/AdvReac Type Severity Reaction Status Date / Time No Known Allergies Allergy Verified 08/16/17 20:53 Physical Examination - Vital Signs Vital Signs: Vital Signs Temp Pulse Pulse Pulse Resp BP BP 08/17/17 08:00 16 08/17/17 07:14 97.6 F 65 16 162/81 08/17/17 00:45 97.4 F L 62 16 147/75 08/16/17 23:27 66 16 176/88 08/16/17 20:34 97.3 F L 70 16 157/75 Pulse Ox 08/17/17 08:00 08/17/17 07:14 97 08/17/17 00:45 100 08/16/17 23:27 08/16/17 20:34 Intake and Output 08/16/17 08/17/17 08/17/17 22:59 06:59 14:59 Intake Total 1000 240 Balance 1000 240 Intake: IV 1000 Sodium Chloride 0.9% 1, 1000 000 ml @ 100 mls/hr IV . Q10H ONE Rx#:[id number] Oral 240 Other: Voiding Method Diaper Diaper Incontinent Incontinent # Voids 1 Weight 97.522 kg - Constitutional General appearance: average body habitus, cooperative - EENT EENT: PERRL, mucous membranes moist - Respiratory Respiratory: lungs clear, normal breath sounds - Cardiovascular Cardiovascular: regular rate, normal S1, normal S2 Extremities: no peripheral edema bilaterally - Gastrointestinal Gastrointestinal: normoactive bowel sounds - Integumentary Integumentary: normal - Neurologic Cranial nerve examination: PERRL, EOMI, V1/V2/V3 grossly intact, face symmetric , tongue midline, intact gag reflex, intact corneal reflex, normal palatal elevation Speech examination: intact Sensorimotor examination: intact Detailed motor examination: grossly full strength in all extremities Motor examination - right side: 4/5: biceps, triceps, wrist flexion, wrist extension, freight trucker, hip flexors, knee extensors, dorsiflexion, toe extension (EHL) , plantarflexion Motor examination - left side: 4/5: biceps, triceps, wrist flexion, wrist extension, freight trucker, hip flexors, knee extensors, dorsiflexion, toe extension (EHL) , plantarflexion Detailed sensory examination: intact Reflex and gait examination: intact Reflexes: 1+: ankle, bicep, knee, tricep - Musculoskeletal Musculoskeletal: no pain - Psychiatric Psychiatric: mood/affect appropriate, cooperative Results - Laboratory Findings CBC and BMP: 08/16/17 21:00 08/16/17 21:00 Abnormal Lab Findings: Abnormal Labs 08/16/17 08/16/17 08/16/17 19:13 20:37 21:00 RBC 3.54 L Hgb 11.7 L Hct 35.4 L MCV 100.1 H Chloride BUN Creatinine Glucose POC Glucose (mg/dL) 106 H Urine Protein Trace H 08/16/17 21:00 RBC Hgb Hct MCV Chloride 109 H BUN 29 H Creatinine 1.50 H Glucose 106 H POC Glucose (mg/dL) Urine Protein Assessment and Plan (1) Dementia Current Visit: Yes Status: Acute Code(s): F03.90 - UNSPECIFIED DEMENTIA WITHOUT BEHAVIORAL DISTURBANCE SNOMED Code(s): 47653414 (2) Acute encephalopathy Current Visit: Yes Status: Acute Code(s): G93.40 - ENCEPHALOPATHY, UNSPECIFIED SNOMED Code(s): 6016124 (3) Chronic renal disease Current Visit: Yes Status: Acute Code(s): N18.9 - CHRONIC KIDNEY DISEASE, UNSPECIFIED SNOMED Code(s): 629606011 (4) Combative behavior Current Visit: Yes Status: Acute Code(s): R46.89 - OTHER SYMPTOMS AND SIGNS INVOLVING APPEARANCE AND BEHAVIOR SNOMED Code(s): 594573347 Plan: This patient is a 87-year-old male who was admitted to hospital with known history of underlying dementia. Probably showed increasing symptoms of worsening dementia and agitation at home. His is unable to care for him any longer and decided to bring him to the emergency room for evaluation. He was seen in the emergency room yesterday and underwent a computed tomography scan of the brain which was negative for any acute changes. He was seen by Dr. Overton in the ER and was noted to have slight agitation. He was admitted to hospital for possible ECF placement as well. Patient is to continue on his current dose of Namenda for treatment of underlying dementia. His neurological examination today is back to baseline level of function for him. We will await further evaluation and consider discharge planning and possible placement for this patient depending on how he does during this admission. His overall prognosis at this time remains guarded. Time with Patient: Greater than 30
--- NOTE | 2017-08-17 15:36 | P.CON ---
Consult Note - . Consult date: 08/17/17 Assessment/Plan:: This consultation performed per the request of Jimenez York regarding thick deformed elongated dystrophic nails Is an 87-year-old white male who came to the emergency room with decreased responsiveness increasing dementia he was not responding and he was unable to take care of himself or graft Home medications: Namenda 10 mg daily ALLERGIES: NO KNOWN DRUG ALLERGIES Systems: 14 point review of systems negative except for as mentioned in the eye Recall history: Dementia, and prostate and skin cancer: colectomy, is a heavy smoker and heavy alcohol use no illicit drug use Lower extremity physical examination revealed essentially normal color moisture temperature and texture the patient's skin for a 87-year-old male's were noted to be thick deformed very elongated neglected changes consistent with onychomycosis were seen to be present involving the digits one through 5 of both feet capillary refill was less than 3 seconds to all digits of both feet Babinski and clonus signs were negative bilaterally Range of motion ankle subtalar midtarsal and metatarsophalangeal joints are free and unrestricted Cement: 1. Dementia 2. Acute progressing dementia, unable to take care of himself at home 3. Acute neurologic event, possibly a worsening of a stroke. 4. Acute anemia 5. Renal insufficiency 6. 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
[2017-08-17] MEDS ORDERED: ZOLPIDEM 5 MG TAB PO PRN (16:53)
[2017-08-17] MEDS: SODIUM CHLORIDE 0.9% 1,000 ML IV SCH (16:57)
[2017-08-17] MEDS: LORazepam 2 MG/ML INJ IV PRN (21:20)
[2017-08-17] MEDS ORDERED: HALOPERIDOL LACTATE 5 MG/ML 1 ML VIAL IM ONE (21:42)
[2017-08-18] MEDS: LORazepam 2 MG/ML INJ IV PRN ×2 (04:59→23:10)
[2017-08-18 08:31] LABS: Basophils % (A) 1 %; Eosinophils # (A) 0.1 k/uL (0-0.7); Eosinophils % (A) 2 %; HCT 36.7 % (39.0-53.0); HGB 12.4 gm/dL (13.0-17.5); Lymphocytes # (A) 1.8 k/uL (1.0-4.8); Lymphocytes % (A) 33 %; MCH 34.2 pg (25.0-35.0); MCHC 33.7 g/dL (31.0-37.0); MCV 101.5 fL (80.0-100.0); Macrocytosis Slight; Mean Platelet Volume 7.5; Monocytes # (A) 0.3 k/uL (0-1.0); Monocytes % (A) 5 %; Neutrophils # (A) 3.2 k/uL (1.3-7.7); Neutrophils % (A) 58 %; Platelet Count 190 k/uL (150-450); RBC 3.61 m/uL (4.30-5.90); RDW 13.7 % (11.5-15.5); WBC 5.4 k/uL (3.8-10.6)
[2017-08-18 08:54] LABS: ALT 30 U/L (21-72); AST 19 U/L (17-59); Albumin 3.7 g/dL (3.5-5.0); Alkaline Phosphatase 62 U/L (38-126); Anion Gap 8 mmol/L; Blood Urea Nitrogen 21 mg/dL (9-20); Calcium 9.3 mg/dL (8.4-10.2); Carbon Dioxide 25 mmol/L (22-30); Chloride 108 mmol/L (98-107); Glucose 95 mg/dL (74-99); Potassium 4.7 mmol/L (3.5-5.1); Sodium 141 mmol/L (137-145); Total Bilirubin 0.6 mg/dL (0.2-1.3); Total Protein 6.4 g/dL (6.3-8.2)
[2017-08-18] MEDS: MEMANTINE 10 MG TAB PO SCH (16:00)
[2017-08-18] MEDS: SODIUM CHLORIDE 0.9% 1,000 ML IV SCH (18:24)
--- NOTE | 2017-08-18 19:10 | CONS ---
CONSULTATION DATE OF SERVICE: 08/18/2017. PURPOSE FOR CONSULTATION: Evaluate for mental status change. HISTORY OF PRESENTING ILLNESS: The patient is an 87-year-old male. He presented to the emergency room with decreased responsiveness and an apparent history of dementia. According to nursing staff, he has had a significant change in his awareness and memory just recently. He has been living at home with his , though through the course of this admission he has not been able to recognize his . He has tended to be somewhat confused and disorganized in his thoughts. He will respond to staff. He generally seems to be somewhat energetic and have a good mood. On the other hand, he does not really respond in a way that is very meaningful as far as expressing any the concerns or needs or being able to have any kind of interactive conversation. Generally he seems to be comfortable and maintains a fairly good mood. He has not had any significant issues with difficult behavior. He responds appropriately to staff and has been taking medications. MENTAL STATUS EXAMINATION: Patient was in bed half sitting up. He had a smile on his face when I walked in. He responded to various questions, though most of the information he provided was disconnected. He often would talk in fractured sentences. When I asked him cognitive questions, he was not able to answer any questions appropriately. He could not say what month it was. He did not know what facility or town he was in. He thought he was in [place]. When asked where he lived, he said [place]. He was generally relaxed. He moved about a bit. He did have a somewhat energetic manner. ASSESSMENT: This 87-year-old male has moderate to advanced dementia. I do not have history available as to the course of dementia. It is noted that he has fairly significant cognitive issues. If his issues relate primarily to dementia, it is not likely that he will gain benefit from Namenda at this point in his progression. It is noted that Namenda for persons with more significant dementia may cause some disruption in mood and behavior. I would be concerned about use of Ambien in a person with dementia. I will discontinue the Ambien and start the patient on trazodone 50 mg at bedtime. Trazodone is more likely to be a safer alternative for insomnia with less risk compared to Ambien. I will continue to follow while he is in the hospital. MMODL / IJN: [id number] /
--- NOTE | 2017-08-18 22:49 | PN ---
PROGRESS NOTE SUBJECTIVE: An 87-year-old white male with severe dementia, got extremely confused last night. They called a Mr. Welch code in the hospital. He was given some Haldol last night and Ativan, which knocked him out. He slept a good part of the night. He has got a sitter at the bedside. Vital signs are stable, afebrile. CARDIOVASCULAR: S1, S2. LUNGS: Clear. GI: Soft. ASSESSMENT: 1. Dementia. 2. Altered mental status. 3. Delirium. Psychiatric consult is pending as well as neurology. Will discharge him to ECF soon. MMODL / IJN: [id number] /
[2017-08-18] MEDS ORDERED: VALPROATE SODIUM 1,000 MG in SODIUM CHLORIDE 0.9% 50 ML IVPB ONE (22:50)
[2017-08-18] MEDS: traZODone HCL 50 MG TAB PO SCH (22:57)
--- NOTE | 2017-08-18 23:16 | EEG ---
ELECTROENCEPHALOGRAM REPORT DATE OF EE08/18/2017. REFERRING PHYSICIAN: Dr. Jimenez York. CONSULTING AND INTERPRETING PHYSICIAN: Dr. Mercedes Clark. INDICATION FOR EXAMINATION: This patient is an 87-year-old male being evaluated for worsening dementia and confusion. AGE: 87. EEG FINDINGS: A routine 21-channel awake digital EEG recording was accomplished utilizing the 10-20 international system with bipolar and referential montages. The background activity in the most alert resting state consists of a low to medium amplitude, poorly-developed and poorly-sustained 6 Hz activity over the posterior head region. This posterior rhythm attenuates to eye opening. There is a small amount of low amplitude 18-20 Hz beta activity seen maximally over the anterior head regions. Muscle and movement artifact was observed on a few occasions during the tracing. Hyperventilation was not performed. Photic stimulation at flash frequencies of 2-30 Hz produced a minimal occipital driving response. The main feature of this tracing is the occurrence of small to medium sharp wave discharges emanating from T4 and C4 electrodes. These last for up to 4 seconds in duration. This is noted on several occasions during this tracing. No motor correlation was noted. IMPRESSION: This EEG is abnormal due to the focal finding of small epileptiform discharges from T4 and C4 electrodes. 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 Would recommend neuro imaging for further evaluation as well. Clinical correlation is recommended. MMAUDREY / ALEKSN: [id number] /
--- NOTE | 2017-08-18 23:21 | P.PN ---
Subjective Progress Note Date: 08/18/17 This patient is a 87 year old male being evaluated for recent worsening dementia and confusion and agitation. Patient has a history of underlying dementia for which he has been treated. Patient underwent routine EEG today which was reviewed. His EEG is abnormal revealing evidence of underlying seizure disorder. We have recommended to start this patient on anticonvulsant therapy today. We will place him on Depakote as it would be a good anticonvulsant and also has mood stabilizing characteristics. Would also recommend an MRI of the brain to be done tomorrow for further evaluation. Given the abnormality on his EEG disc could explain his recent changes in mentation and confusion. We will continue him on maintenance dose of Depakote and will check his levels tomorrow. We did attempt to contact his by phone and she was unavailable. We will discuss these findings tomorrow with the in terms of further treatment plans. His overall prognosis at this time remains guarded. Objective - Vital Signs Vital signs: Vital Signs Temp 97.8 F 08/18/17 15:00 Pulse 70 08/18/17 15:00 Resp 16 08/18/17 15:00 BP 162/77 08/18/17 15:00 Pulse Ox 96 08/18/17 15:00 Intake & Output 08/18/17 08/18/17 08/19/17 06:59 18:59 06:59 Intake Total 180 Balance 180 Intake: Oral 180 Other: Voiding Method Diaper Diaper Incontinent Incontinent # Voids 2 3 - Exam Physical examination: PHYSICAL EXAMINATION: Patient is resting comfortably in bed. VITAL SIGNS: Blood pressure is [160/98]. Heart rate is [69]. Respiration is [16] . Temperature is [97.8]. HEENT: Head is atraumatic, neck is supple, there were no carotid bruits. CHEST: Lungs are clear to auscultation and percussion. CARDIAC: S1, S2 normal rate and rhythm. There is no murmur. ABDOMEN: Soft and nontender. Bowel sounds are present. EXTREMITIES: There is no pedal edema. Peripheral pulses are present. Neurological examination: Patient has a nonfocal neurological exam. He is alert and oriented 2. He is not agitated or combative at this time. - Labs CBC & Chem 7: 08/18/17 08:06 08/18/17 08:06 Labs: Abnormal Lab Results - Last 24 Hours (Table) 08/18/17 08/18/17 Range/Units 08:06 08:06 RBC 3.61 L (4.30-5.90) m/uL Hgb 12.4 L (13.0-17.5) gm/dL Hct 36.7 L (39.0-53.0) % MCV 101.5 H (80.0-100.0) fL Chloride 108 H (98-107) mmol/L BUN 21 H (9-20) mg/dL Microbiology - Last 24 Hours (Table) 08/16/17 19:13 Urine Culture - Final Urine,Catheterized Assessment and Plan (1) Dementia Current Visit: Yes Status: Acute Code(s): F03.90 - UNSPECIFIED DEMENTIA WITHOUT BEHAVIORAL DISTURBANCE SNOMED Code(s): 94595721 (2) Acute encephalopathy Current Visit: Yes Status: Acute Code(s): G93.40 - ENCEPHALOPATHY, UNSPECIFIED SNOMED Code(s): 1558085 (3) Chronic renal disease Current Visit: Yes Status: Acute Code(s): N18.9 - CHRONIC KIDNEY DISEASE, UNSPECIFIED SNOMED Code(s): 971129102 (4) Combative behavior Current Visit: Yes Status: Acute Code(s): R46.89 - OTHER SYMPTOMS AND SIGNS INVOLVING APPEARANCE AND BEHAVIOR SNOMED Code(s): 854596942 Plan: This patient is a 87-year-old male who was admitted to hospital with worsening dementia and increased confusion. Patient has a known history of underlying dementia. He underwent a routine EEG today which is reviewed and is abnormal. Patient will be started on anticonvulsant therapy. He has been placed on Depakote for seizure prophylaxis. We are recommending an MRI of the brain to be done tomorrow for further evaluation. We will check his Depakote level tomorrow morning. We attempted to contact his by phone this evening and she was unavailable. We will go over these results with her tomorrow in terms of his current clinical findings and further recommendations. His overall prognosis at this time remains very guarded.
[2017-08-19] MEDS ORDERED: DIVALPROEX 500 MG TABLET.DR PO SCH (09:00)
[2017-08-19] MEDS: MEMANTINE 10 MG TAB PO SCH (09:06)
[2017-08-19] MEDS: SODIUM CHLORIDE 0.9% 1,000 ML IV SCH (09:07)
[2017-08-19] MEDS ORDERED: DIVALPROEX 500 MG TABLET.DR PO STA (11:55)
--- NOTE | 2017-08-19 14:16 | MR ---
EXAMINATION TYPE: MR brain wo/w con DATE OF EXAM: 08/19/2017 COMPARISON: NONE HISTORY: Patient with abnormal EEG and confusion TECHNIQUE: Multiplanar, multisequence images of the brain and brainstem is performed without and with IV contras t, utilizing 10 mL intravenous Gadavist . FINDINGS: Diffusion weighted images demonstrate no evidence of a recent infarct or other diffusion ab normality. There is no extra-axial fluid collection. Periventricular confluent and scattered hyperin tensities on inversion recovery and T2-weighted sequences likely due to chronic small vessel ischemia The ventricular system and cisternal spaces are normal in size and appearance. The brain volume is age appropriate. Cortical atrophy is likely age-related. Midline structures demonstrate normal morphology. The craniocervical junction appears within normal limits. Post contrast images demonstrate no abnormal enhancement. The dural venous sinuses appear pa tent. The visualized sinuses are clear and the globes are intact. IMPRESSION: No acute abnormality. Age-related changes of atrophy and probable chronic small vessel is chemia. Fast brain protocol was utilized due to patient condition.
[2017-08-19] MEDS: LORazepam 2 MG/ML INJ IV PRN ×2 (16:26→21:40)
--- NOTE | 2017-08-19 16:50 | CONS ---
CONSULTATION DATE OF SERVICE: 08/19/2017. PURPOSE OF CONSULTATION: Evaluate for mental status change. INTERVAL HISTORY: Patient has been doing fairly well. He had a quiet evening last night. He slept well today. He has been up. He continues to maintain a good mood. He talks in response to staff. He continues to be very limited in his understanding and awareness of circumstances. A MRI of the brain was performed that revealed no acute abnormalities. He did show some age-related changes of atrophy and probable chronic small-vessel ischemia. The patient has been cooperative. He has not had any significant behavioral concerns. He does have a positive EEG findings of possible focal seizures in the central temporal region. CT scan of the brain was unremarkable. At this point, the patient has not had any significant mood or behavior issues. I will not look at initiating any psychotropic medications. I will continue to follow as appropriate. FABIO / MARYBEL: [id number] /
--- NOTE | 2017-08-19 20:07 | P.PN ---
Subjective Progress Note Date: 08/19/17 This patient is a 87 year old male being evaluated for recent worsening dementia and confusion and agitation. Patient has a history of underlying dementia for which he has been treated. Patient underwent routine EEG yesterday which was reviewed. His EEG is abnormal revealing evidence of underlying seizure disorder. We have recommended to start this patient on anticonvulsant therapy. We will place him on Depakote as it would be a good anticonvulsant and also has mood stabilizing characteristics. His Depakote level this morning was slightly subtherapeutic at 41.3. He will be given an oral dose and his maintenance dose will be adjusted as well. Would also recommend an MRI of the brain to be done for further evaluation. His MRI of the brain was completed today the results of which indicated no acute abnormality. There is age-related changes and atrophy and chronic small vessel ischemic changes. No evidence of any enhancing mass lesion. Given the abnormality on his EEG this could explain his recent changes in mentation and confusion. We will continue him on maintenance dose of Depakote and will check his levels tomorrow. He is on Depakote today came back at 41.3. We will increase his maintenance dose of Depakote 1000 mg twice a day. We will recheck his level tomorrow morning. We were able to discuss this patient's EEG findings and MRI findings today with his over the phone. She was in the room today and we did speak to her. She was updated on his EEG findings yesterday which was abnormal. He was able to complete MRI of the brain today which was reviewed and reveals only age-related atrophy and chronic small vessel ischemic changes. No evidence of any enhancing mass lesion. The patient 's would like to proceed with ECF placement for the patient. Apparently he she is unable to continue to care for him as she is suffering from cancer. Plans will be to make him a full inpatient admit and then work on discharge planning. Case was discussed at length with the . She was updated on his overall condition and test results. We will continue to monitor his condition closely during this admission. We will check a Depakote level tomorrow morning and make further adjustments if necessary. His overall prognosis at this time remains guarded. Objective - Vital Signs Vital signs: Vital Signs Temp 97.5 F L 08/19/17 14:56 Pulse 67 08/19/17 14:56 Resp 20 08/19/17 14:56 BP 174/85 08/19/17 14:56 Pulse Ox 98 08/19/17 14:56 Intake & Output 08/18/17 08/19/17 08/19/17 18:59 06:59 18:59 Intake Total 180 550 600 Balance 180 550 600 Intake: Intake, IV Titration 550 Amount Sodium Chloride 0.9% 1, 550 000 ml @ 50 mls/hr IV . Q20H [facility] Rx#:[id number] Oral 180 600 Other: Voiding Method Diaper Diaper Diaper Incontinent Incontinent Incontinent # Voids 3 1 # Bowel Movements 1 - Exam Physical examination: PHYSICAL EXAMINATION: Patient is resting comfortably in bed. VITAL SIGNS: Blood pressure is [144/85]. Heart rate is [67]. Respiration is [20] . Temperature is [97.5]. HEENT: Head is atraumatic, neck is supple, there were no carotid bruits. CHEST: Lungs are clear to auscultation and percussion. CARDIAC: S1, S2 normal rate and rhythm. There is no murmur. ABDOMEN: Soft and nontender. Bowel sounds are present. EXTREMITIES: There is no pedal edema. Peripheral pulses are present. Neurological examination: Patient has a nonfocal neurological exam. He is alert and oriented 2. He is not agitated or combative at this time. He is pleasantly confused. - Labs CBC & Chem 7: 08/18/17 08:06 08/18/17 08:06 Labs: Microbiology - Last 24 Hours (Table) 08/16/17 19:13 Urine Culture - Final Urine,Catheterized Assessment and Plan (1) Dementia Current Visit: Yes Status: Acute Code(s): F03.90 - UNSPECIFIED DEMENTIA WITHOUT BEHAVIORAL DISTURBANCE SNOMED Code(s): 62723518 (2) Acute encephalopathy Current Visit: Yes Status: Acute Code(s): G93.40 - ENCEPHALOPATHY, UNSPECIFIED SNOMED Code(s): 4493669 (3) Chronic renal disease Current Visit: Yes Status: Acute Code(s): N18.9 - CHRONIC KIDNEY DISEASE, UNSPECIFIED SNOMED Code(s): 664367719 (4) Combative behavior Current Visit: Yes Status: Acute Code(s): R46.89 - OTHER SYMPTOMS AND SIGNS INVOLVING APPEARANCE AND BEHAVIOR SNOMED Code(s): 220029476 Plan: Patient is resting comfortably today. He does not appear to be agitated or confused. He does have history of advanced dementia. His EEG was abnormal and we did start him on Depakote for seizure prophylaxis. His Depakote level today is 41.3. We will recheck his level tomorrow morning. Case was discussed at length today with the patient's this morning regarding his discharge planning. She would like him to be placed into an ECF facility as she is unable to care for him at home. Patient will need to be made an inpatient and then working for possible placement for him as soon as possible. Patient completed his MRI of the brain today results which are noted above. MRI fails to reveal any acute changes and no evidence of any enhancing mass lesion. We will continue to monitor his progress closely. Hopefully this should be continuing improvement with his mental status now that he is on Depakote. We will check his Depakote level tomorrow morning. His overall prognosis at this time remains guarded.
[2017-08-19] MEDS: traZODone HCL 50 MG TAB PO SCH (21:14)
[2017-08-19] MEDS: DIVALPROEX 500 MG TABLET.DR PO SCH (21:15)
--- NOTE | 2017-08-19 22:20 | PN ---
PROGRESS NOTE SUBJECTIVE: An 87-year-old white male admitted with altered mental status, dementia, awaiting long term placement for long-term care, unable to take care of himself. He is thoroughly confused at times. CARDIOVASCULAR: S1, S2. LUNGS: Clear. GI: Soft. HEMATOLOGY: Negative Homans'. ASSESSMENT: 1. Altered mental status. 2. Delirium. 3. Dementia. PLAN: Await Discharge Planning to find him a place to go to rehab center. MMAUDREY / ALEKSN: [id number] /
[2017-08-20 04:30] VITALS: RESP 16
[2017-08-20] MEDS: SODIUM CHLORIDE 0.9% 1,000 ML IV SCH ×2 (06:20→10:37)
[2017-08-20] MEDS: DIVALPROEX 500 MG TABLET.DR PO SCH ×2 (10:37→21:05)
[2017-08-20] MEDS: MEMANTINE 10 MG TAB PO SCH (10:37)
--- NOTE | 2017-08-20 12:24 | PN ---
PROGRESS NOTE A white male with dementia, acute encephalopathy, chronic renal disease, combative behavior. He is resting comfortably today. He is awake. He has been started on Depakote for seizure prophylaxis. EEG was abnormal and a Depakote level was 41. We are expecting ECF referral as patient's has got , unable to care for him. CARDIOVASCULAR S1, S2. LUNGS: Clear. GI: Soft. HEMATOLOGY: Negative Homans. PSYCH: Alert and oriented x0. Does . White count 5.4, hemoglobin 12.4, BUN 21, creatinine 1.21. ASSESSMENT: 1. Dementia. 2. Acute encephalopathy. 3. Seizure disorder. 4. Chronic renal disease. 5. Combative behavior. Await discharge plan for possible rehab, ECF placement. MRI showed no enhancing mass lesion. Continue current treatment. FABIO / MARYBEL: [id number] /
--- NOTE | 2017-08-20 16:34 | P.PN ---
Subjective Progress Note Date: 08/20/17 This patient is a 87 year old male being evaluated for recent worsening dementia and confusion and agitation. Patient has a history of underlying dementia for which he has been treated. Patient underwent routine EEG yesterday which was reviewed. His EEG is abnormal revealing evidence of underlying seizure disorder. We have recommended to start this patient on anticonvulsant therapy. We will place him on Depakote as it would be a good anticonvulsant and also has mood stabilizing characteristics. His Depakote level this morning was slightly subtherapeutic at 41.3. He will be given an oral dose and his maintenance dose will be adjusted as well. Would also recommend an MRI of the brain to be done for further evaluation. His MRI of the brain was completed today the results of which indicated no acute abnormality. There is age-related changes and atrophy and chronic small vessel ischemic changes. No evidence of any enhancing mass lesion. Given the abnormality on his EEG this could explain his recent changes in mentation and confusion. We will continue him on maintenance dose of Depakote and will check his levels tomorrow. He is on Depakote today came back at 41.3. We will increase his maintenance dose of Depakote 1000 mg twice a day. We will recheck his level tomorrow morning. We were able to discuss this patient's EEG findings and MRI findings today with his over the phone. She was in the room today and we did speak to her. She was updated on his EEG findings yesterday which was abnormal. He was able to complete MRI of the brain today which was reviewed and reveals only age-related atrophy and chronic small vessel ischemic changes. No evidence of any enhancing mass lesion. The patient 's would like to proceed with ECF placement for the patient. Apparently he she is unable to continue to care for him as she is suffering from cancer. Plans will be to make him a full inpatient admit and then work on discharge planning. Case was discussed at length with the . She was updated on his overall condition and test results. We will continue to monitor his condition closely during this admission. His Depakote level today came back therapeutic at 68.2. We will continue to monitor his condition closely. His overall prognosis at this time remains guarded. Objective - Vital Signs Vital signs: Vital Signs Temp 97.6 F 08/20/17 07:00 Pulse 65 08/20/17 07:00 Resp 16 08/20/17 07:00 BP 183/85 08/20/17 07:00 Pulse Ox 94 L 08/20/17 07:00 Intake & Output 08/19/17 08/20/17 08/20/17 18:59 06:59 18:59 Intake Total 850 550 360 Balance 850 550 360 Intake: Intake, IV Titration 400 Amount Sodium Chloride 0.9% 1, 400 000 ml @ 50 mls/hr IV . Q20H [facility] Rx#:[id number] Oral 850 150 360 Other: Voiding Method Diaper Bedside Commode Incontinent Incontinent Urinal Diaper # Voids 1 2 1 # Bowel Movements 1 2 1 - Exam Physical examination: PHYSICAL EXAMINATION: Patient is resting comfortably in bed. VITAL SIGNS: Blood pressure is [183/85]. Heart rate is [65]. Respiration is [16] . Temperature is [97.7]. HEENT: Head is atraumatic, neck is supple, there were no carotid bruits. CHEST: Lungs are clear to auscultation and percussion. CARDIAC: S1, S2 normal rate and rhythm. There is no murmur. ABDOMEN: Soft and nontender. Bowel sounds are present. EXTREMITIES: There is no pedal edema. Peripheral pulses are present. Neurological examination: Patient has a nonfocal neurological exam. He is alert and oriented 2. He is not agitated or combative at this time. He is pleasantly confused. - Labs CBC & Chem 7: 08/18/17 08:06 08/18/17 08:06 Assessment and Plan (1) Dementia Current Visit: Yes Status: Acute Code(s): F03.90 - UNSPECIFIED DEMENTIA WITHOUT BEHAVIORAL DISTURBANCE SNOMED Code(s): 98854441 (2) Acute encephalopathy Current Visit: Yes Status: Acute Code(s): G93.40 - ENCEPHALOPATHY, UNSPECIFIED SNOMED Code(s): 2221719 (3) Chronic renal disease Current Visit: Yes Status: Acute Code(s): N18.9 - CHRONIC KIDNEY DISEASE, UNSPECIFIED SNOMED Code(s): 430706991 (4) Combative behavior Current Visit: Yes Status: Acute Code(s): R46.89 - OTHER SYMPTOMS AND SIGNS INVOLVING APPEARANCE AND BEHAVIOR SNOMED Code(s): 354769214 Plan: This patient is a 87-year-old male being evaluated for episode of increasing confusion and dementia. He underwent routine EEG during this admission which was abnormal. He was started on Depakote for treatment of underlying seizure disorder. His Depakote level today is therapeutic at 68.2. He continues to do quite well and has not been agitated or combative. We're waiting placement of this patient into ECF as his cannot care for him at home. We will continue to monitor his progress closely during this admission. His overall prognosis remains guarded.
[2017-08-20] MEDS: traZODone HCL 50 MG TAB PO SCH (21:04)
[2017-08-21] MEDS: DIVALPROEX 500 MG TABLET.DR PO SCH ×2 (11:19→19:13)
[2017-08-21] MEDS: MEMANTINE 10 MG TAB PO SCH (11:20)
--- NOTE | 2017-08-21 11:57 | P.PN ---
Subjective Progress Note Date: 08/21/17 This patient is a 87 year old male being evaluated for recent worsening dementia and confusion and agitation. Patient has a history of underlying dementia for which he has been treated. Patient underwent routine EEG yesterday which was reviewed. His EEG is abnormal revealing evidence of underlying seizure disorder. We have recommended to start this patient on anticonvulsant therapy. We will place him on Depakote as it would be a good anticonvulsant and also has mood stabilizing characteristics. His Depakote level this morning was slightly subtherapeutic at 41.3. He will be given an oral dose and his maintenance dose will be adjusted as well. Would also recommend an MRI of the brain to be done for further evaluation. His MRI of the brain was completed today the results of which indicated no acute abnormality. There is age-related changes and atrophy and chronic small vessel ischemic changes. No evidence of any enhancing mass lesion. Given the abnormality on his EEG this could explain his recent changes in mentation and confusion. We will continue him on maintenance dose of Depakote and will check his levels next week. We will increase his maintenance dose of Depakote 1000 mg twice a day. We will recheck his level tomorrow morning. We were able to discuss this patient's EEG findings and MRI findings today with his over the phone. She was in the room today and we did speak to her. She was updated on his EEG findings yesterday which was abnormal. He was able to complete MRI of the brain today which was reviewed and reveals only age-related atrophy and chronic small vessel ischemic changes. No evidence of any enhancing mass lesion. The patient's would like to proceed with ECF placement for the patient. Apparently he she is unable to continue to care for him as she is suffering from cancer. Plans will be to make him a full inpatient admit and then work on discharge planning. Case was discussed at length with the . The patient was at bedside today. She feels he is continuing to decline in terms of his advancing dementia. She is hoping he may be placed into [facility] early this next week. She was updated on his overall condition and test results. We will continue to monitor his condition closely during this admission. His Depakote level today came back therapeutic at 68.2. We will continue to monitor his condition closely. His overall prognosis at this time remains guarded. Objective - Vital Signs Vital signs: Vital Signs Temp 97.6 F 08/21/17 00:30 Pulse 72 08/21/17 00:30 Resp 16 08/21/17 00:30 BP 158/82 08/21/17 00:30 Pulse Ox 96 08/21/17 00:30 Intake & Output 08/20/17 08/21/17 08/21/17 18:59 06:59 18:59 Intake Total 1100 800 Balance 1100 800 Intake: Intake, IV Titration 800 Amount Sodium Chloride 0.9% 1, 800 000 ml @ 50 mls/hr IV . Q20H [facility] Rx#:[id number] Oral 1100 Other: Voiding Method Incontinent Incontinent # Voids 1 3 # Bowel Movements 1 1 - Exam Physical examination: PHYSICAL EXAMINATION: Patient is resting comfortably in bed. VITAL SIGNS: Blood pressure is [158/82]. Heart rate is [72]. Respiration is [16] . Temperature is [97.7]. HEENT: Head is atraumatic, neck is supple, there were no carotid bruits. CHEST: Lungs are clear to auscultation and percussion. CARDIAC: S1, S2 normal rate and rhythm. There is no murmur. ABDOMEN: Soft and nontender. Bowel sounds are present. EXTREMITIES: There is no pedal edema. Peripheral pulses are present. Neurological examination: Patient has a nonfocal neurological exam. He is alert and oriented 2. He is not agitated or combative at this time. He is pleasantly confused. - Labs CBC & Chem 7: 08/18/17 08:06 08/18/17 08:06 Assessment and Plan (1) Dementia Current Visit: Yes Status: Acute Code(s): F03.90 - UNSPECIFIED DEMENTIA WITHOUT BEHAVIORAL DISTURBANCE SNOMED Code(s): 25918488 (2) Acute encephalopathy Current Visit: Yes Status: Acute Code(s): G93.40 - ENCEPHALOPATHY, UNSPECIFIED SNOMED Code(s): 1304721 (3) Chronic renal disease Current Visit: Yes Status: Acute Code(s): N18.9 - CHRONIC KIDNEY DISEASE, UNSPECIFIED SNOMED Code(s): 384960280 (4) Combative behavior Current Visit: Yes Status: Acute Code(s): R46.89 - OTHER SYMPTOMS AND SIGNS INVOLVING APPEARANCE AND BEHAVIOR SNOMED Code(s): 319442823 Plan: This patient is a 87-year-old male being evaluated for worsening dementia and confusion. He underwent a EEG which was abnormal. He has been started on Depakote for further treatment of the EEG abnormality. His last Depakote level was therapeutic at 68.2. Patient is being considered for placement into the fdc possibly tomorrow. The patient was at bedside today and she was updated on his overall neurological findings. She is in full agreement to have him placed into a fdc as she is unable to give him further care at home on her own. We will await discharge planning for the patient tomorrow and he is to be transferred to the fdc as soon as a bed becomes available. His overall prognosis at this time remains guarded.
--- NOTE | 2017-08-21 19:10 | PN ---
PROGRESS NOTE SUBJECTIVE: 87-year-old male with dementia and delirium, confusion, started on anticonvulsant therapy. EEG showing seizure disorder. His Depakote level is being adjusted. He is up eating in bed today. Giving appropriate answers. CARDIOVASCULAR: S1, S2. LUNGS: Clear. GI: Soft. HEMATOLOGY: Negative Homans. Temp 97.6, pulse 72, respiratory rate 16, blood pressure 150s over 60s, O2 96% on room air. ASSESSMENT: 1. Dementia. 2. Acute encephalopathy. 3. Chronic renal disease. 4. Combative disorder. Continue current treatment. Follow up in next 24 to 48 hours for discharge to long term. MMODL / IJN: [id number] /
[2017-08-21] MEDS: LORazepam 2 MG/ML INJ IV PRN (19:12)
[2017-08-21] MEDS: traZODone HCL 50 MG TAB PO SCH (19:13)
[2017-08-21] MEDS: SODIUM CHLORIDE 0.9% 1,000 ML IV SCH (21:50)
[2017-08-22] MEDS: MEMANTINE 10 MG TAB PO SCH (08:53)
[2017-08-22] MEDS: DIVALPROEX 500 MG TABLET.DR PO SCH ×2 (08:53→20:27)
--- NOTE | 2017-08-22 13:14 | DS ---
DISCHARGE SUMMARY DISCHARGE DIAGNOSES: 1. Dementia. 2. Acute encephalopathy. 3. Chronic anemia. 4. Chronic renal disease, stage III. 5. Combative behavior. HOSPITAL COURSE OF EVENTS: An 87-year-old male is evaluated for dementia and confusion. He was placed on some Depakote for new onset seizures, for seizure disorder. Depakote level was found to be stable on discharge. His dementia comes and goes. He was combative at night the first night but then he became more with it. He is stabilized from medical standpoint. He will go home on Depakote 1000 b.i.d., Namenda 10 mg daily, trazodone 50 mg daily. CONDITION: Stable. PROGNOSIS: Guarded. FOLLOWUP: Follow up with Dr. Jimenez York at [facility]. DIET: Regular as tolerated. May need long-term dementia wing as is unable to care for the patient as she has cancer herself. MMODL / IJN: [id number] /
[2017-08-22] MEDS: SODIUM CHLORIDE 0.9% 1,000 ML IV SCH (16:50)
[2017-08-22] MEDS: LORazepam 2 MG/ML INJ IV PRN (18:33)
--- NOTE | 2017-08-22 18:42 | P.PN ---
Subjective Progress Note Date: 08/22/17 This patient is a 87 year old male being evaluated for recent worsening dementia and confusion and agitation. Patient has a history of underlying dementia for which he has been treated. Patient underwent routine EEG yesterday which was reviewed. His EEG is abnormal revealing evidence of underlying seizure disorder. We have recommended to start this patient on anticonvulsant therapy. We will place him on Depakote as it would be a good anticonvulsant and also has mood stabilizing characteristics. His Depakote level this morning was slightly subtherapeutic at 41.3. He will be given an oral dose and his maintenance dose will be adjusted as well. Would also recommend an MRI of the brain to be done for further evaluation. His MRI of the brain was completed today the results of which indicated no acute abnormality. There is age-related changes and atrophy and chronic small vessel ischemic changes. No evidence of any enhancing mass lesion. Given the abnormality on his EEG this could explain his recent changes in mentation and confusion. We will continue him on maintenance dose of Depakote and will check his levels next week. We will increase his maintenance dose of Depakote 1000 mg twice a day. We will recheck his level tomorrow morning. We were able to discuss this patient's EEG findings and MRI findings today with his over the phone. She was in the room today and we did speak to her. She was updated on his EEG findings yesterday which was abnormal. He was able to complete MRI of the brain today which was reviewed and reveals only age-related atrophy and chronic small vessel ischemic changes. No evidence of any enhancing mass lesion. The patient's would like to proceed with ECF placement for the patient. Apparently he she is unable to continue to care for him as she is suffering from cancer. Plans will be to make him a full inpatient admit and then work on discharge planning. Case was discussed at length with the . The patient was at bedside today. She feels he is continuing to decline in terms of his advancing dementia. She is hoping he may be placed into [facility] possibly later today.. She was updated on his overall condition and test results. We will continue to monitor his condition closely during this admission. His Depakote level today came back therapeutic at 68.2. Patient apparently will go to [facility] for long-term care. He should continue on his current dose of Depakote and Namenda. We will continue to monitor his condition closely. His overall prognosis at this time remains guarded. Objective - Vital Signs Vital signs: Vital Signs Temp 98 F 08/22/17 15:00 Pulse 74 08/22/17 15:00 Resp 16 08/22/17 15:00 BP 154/90 08/22/17 15:00 Pulse Ox 92 L 08/22/17 15:00 Intake & Output 08/21/17 08/22/17 08/22/17 18:59 06:59 18:59 Intake Total 1350 Output Total 1 Balance 1349 Intake: Intake, IV Titration 350 Amount Sodium Chloride 0.9% 1, 350 000 ml @ 50 mls/hr IV . Q20H [facility] Rx#:[id number] Oral 1000 Output: Stool 1 Other: Voiding Method Incontinent Incontinent # Voids 1 1 1 - Exam Physical examination: PHYSICAL EXAMINATION: Patient is resting comfortably in bed. VITAL SIGNS: Blood pressure is [154/90]. Heart rate is [74]. Respiration is [16] . Temperature is [98.0]. HEENT: Head is atraumatic, neck is supple, there were no carotid bruits. CHEST: Lungs are clear to auscultation and percussion. CARDIAC: S1, S2 normal rate and rhythm. There is no murmur. ABDOMEN: Soft and nontender. Bowel sounds are present. EXTREMITIES: There is no pedal edema. Peripheral pulses are present. Neurological examination: Patient has a nonfocal neurological exam. He is alert and oriented 2. He is not agitated or combative at this time. He is pleasantly confused. - Labs CBC & Chem 7: 08/18/17 08:06 08/18/17 08:06 Assessment and Plan (1) Dementia Current Visit: Yes Status: Acute Code(s): F03.90 - UNSPECIFIED DEMENTIA WITHOUT BEHAVIORAL DISTURBANCE SNOMED Code(s): 54656962 (2) Acute encephalopathy Current Visit: Yes Status: Acute Code(s): G93.40 - ENCEPHALOPATHY, UNSPECIFIED SNOMED Code(s): 8949365 (3) Chronic renal disease Current Visit: Yes Status: Acute Code(s): N18.9 - CHRONIC KIDNEY DISEASE, UNSPECIFIED SNOMED Code(s): 879847414 (4) Combative behavior Current Visit: Yes Status: Acute Code(s): R46.89 - OTHER SYMPTOMS AND SIGNS INVOLVING APPEARANCE AND BEHAVIOR SNOMED Code(s): 761702629 Plan: This patient is a 87-year-old male who has a history of advancing dementia. He was found during this admission to have abnormal EEG findings of underlying seizure disorder. He has been started on Depakote and his last Depakote level was therapeutic. He is being evaluated for placement into [facility] later today. He has been accepted for placement into [facility]. He is to continue on his current dose of Depakote and Namenda. We will continue to monitor his progress closely during this admission. So overall prognosis at this time remains very guarded.
[2017-08-22] MEDS: traZODone HCL 50 MG TAB PO SCH (20:27)
--- NOTE | 2017-08-23 04:44 | PN ---
PROGRESS NOTE SUBJECTIVE: This is a white male with dementia, seizures, delirium, admitted with seizure disorder. Remains on Depakote for the treatment. CARDIOVASCULAR: S1, S2. LUNGS: Clear. GI: Soft. HEMATOLOGY: Negative Homans. ASSESSMENT: 1. Delirium. 2. Dementia. 3. Seizures. Continue current treatment. Follow up in next 24 to 48 hours for possible rehab center. MMAMITAL / ALEKSN: [id number] /
[2017-08-23 07:40] VITALS: BP 147/95; PULSE 78; TEMP 97.7
[2017-08-23] MEDS: MEMANTINE 10 MG TAB PO SCH (08:48)
[2017-08-23] MEDS: DIVALPROEX 500 MG TABLET.DR PO SCH (08:48)
--- NOTE | 2017-08-23 10:00 | PN ---
PROGRESS NOTE SUBJECTIVE: This is an 87-year-old white male who was admitted to the hospital with new onset seizure disorder, dementia, delirium. The patient is sleeping comfortably at night. He is still confused in the morning. He is able to eat by himself once he wakes up. He is waiting for alf placement at this time due to severe dementia. CARDIOVASCULAR: S1, S2. LUNGS: Clear. GI: Soft. HEMATOLOGY: Negative Homans. ASSESSMENT: 1. Dementia. 2. Delirium. 3. Seizure disorder. Continue current medications at alf. MMODL / IJN: [id number] /
[2017-08-23] MEDS: SODIUM CHLORIDE 0.9% 1,000 ML IV SCH (11:28)
--- NOTE | 2017-08-23 12:50 | CDI ---
Last Revision, July 2017 Documentation Clarification Form Date: 08/23/2017 12:40:00 PM From: Nargis Stephen RN, CCDS Admit Date: 08/19/2017 2:06:00 PM Patient Name: Jimenez Tracy Visit Number: [id number] ATTENTION: The Clinical Documentation Specialists (CDI) and [facility] Coding Staff appreciate your assistance in clarifying documentation. Please respond to the clarification below the line at the bottom and electronically sign. The CDI & [facility] Coding staff will review the response and follow-up if needed. Please note: Queries are made part of the Legal Health Record. If you have any questions, please contact the author of this message via ITS. Dr. Jimenez York Acute Encephalopathy is documented in the Neurology and Attending Progress Notes and requires further specificity. History/Risk factors: Dementia, possible seizure disorder, UTI, ETOH, Smoker Clinical Indicators: Labs: Hgb 11.7/12.4, BUN 29/21, Creatinine 1.5/1.21 EEG: EEG is abnormal due to the focal finding of small epileptiform discharges from T4 and C4 electrodes. 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 CT/MRI Brain: Age-related changes of atrophy and probable chronic small vessel ischemia. Treatment: Consults: Neurology & Psych IVF PO Namenda, PO Depakote, IV Ativan In your professional opinion, can you please clarify the specific type of encephalopathy, if known? Hypertensive Encephalopathy Metabolic Encephalopathy Septic Encephalopathy Toxic Encephalopathy Hepatic Encephalopathy, if indicated, please clarify: Indicate if any complications: Coma, other disease process? Indicate whether acute, sub-acute or chronic? Causal Condition: Alcoholism, Hepatitis, other disease process? Other, please specify Unable to determine Please continue to document in your progress notes and discharge summary in order to capture severity of illness and risk of mortality. Include clinical findings that support your diagnosis. MTDD
--- NOTE | 2017-08-25 13:13 | CDI ---
Last Revision, July 2017 Documentation Clarification Form Date: 08/23/2017 12:40:00 PM From: Nargis Stephen RN, CCDS Admit Date: 08/19/2017 2:06:00 PM Patient Name: Jimenez Tracy Visit Number: [id number] ATTENTION: The Clinical Documentation Specialists (CDI) and [facility] Coding Staff appreciate your assistance in clarifying documentation. Please respond to the clarification below the line at the bottom and electronically sign. The CDI & [facility] Coding staff will review the response and follow-up if needed. Please note: Queries are made part of the Legal Health Record. If you have any questions, please contact the author of this message via ITS. Dr. Jimenez York Acute Encephalopathy is documented in the Neurology and Attending Progress Notes and requires further specificity. History/Risk factors: Dementia, possible seizure disorder, UTI, ETOH, Smoker Clinical Indicators: Labs: Hgb 11.7/12.4, BUN 29/21, Creatinine 1.5/1.21 EEG: EEG is abnormal due to the focal finding of small epileptiform discharges from T4 and C4 electrodes. 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 CT/MRI Brain: Age-related changes of atrophy and probable chronic small vessel ischemia. Treatment: Consults: Neurology In your professional opinion, can you please clarify the specific type of encephalopathy, if known? Metabolic Encephalopathy Septic Encephalopathy Toxic Encephalopathy Hepatic Encephalopathy, if indicated, please clarify: Indicate if any complications: Coma, other disease process? Indicate whether acute, sub-acute or chronic? Causal Condition: Alcoholism, Hepatitis, other disease process? Other, please specify Unable to determine Please continue to document in your progress notes and discharge summary in order to capture severity of illness and risk of mortality. Include clinical findings that support your diagnosis. MTDD
== END 2017-08-23 18:14 | DRG 884 ==
LOC: EC 20:31 → 3SUR 23:30 → OBSVTOIN 08-19 14:06
PROVIDERS: ADMIT Family Medicine; ATTEND Family Medicine
DX: F03.90 Unspecified dementia, unspecified severity, without behavioral disturbance, psychotic disturbance, mood disturbance, and anxiety (principal); G93.40 Encephalopathy, unspecified; F05 Delirium due to known physiological condition; D64.9 Anemia, unspecified; G40.909 Epilepsy, unspecified, not intractable, without status epilepticus; N18.3 Chronic kidney disease, stage 3 (moderate); Z80.1 Family history of malignant neoplasm of trachea, bronchus and lung; Z82.49 Family history of ischemic heart disease and other diseases of the circulatory system; Z85.038 Personal history of other malignant neoplasm of large intestine; Z85.828 Personal history of other malignant neoplasm of skin; Z87.891 Personal history of nicotine dependence; Z79.899 Other long term (current) drug therapy
CPT/HCPCS: 36415; 70450; 70553; 80053; 80164; 81003; 82550; 82553; 83605; 83735; 84100; 84484; 85025; 85610; 85730; 87086; 93005; 95819; 96360; 99285